=== PATIENT | female | born 1965 | race Caucasian/White ===

== ENCOUNTER 2024-11-08 20:24 | Outpatient (REF) | payer OTHER, SELFPAY ==
--- OUTSIDE RECORDS SUMMARY | 2024-06-13 11:15 | XMS_ITS ---
Author Organization [facility] vices Address [address] [place] [phone] Care Team Providers Care Asphalt Tile Floor Layer Name Role Phone Amy Nails Unavailable [phone] REASON FOR VISIT Recall (A) 58 Social History Sex Assigned At : Social History Observation Description Sex Assigned At Female Encounters Encounter Location Date Provider Diagnosis [facility] [address] [place] [id number] 06/13/2024 Amy Nails Plan Of Treatment Next Appt Details Provider Name:Amy oYngharper , 12/21/2024 12:45:00 PM, [address] [place] [address], [id number], Progress Notes * Ольга GARCIA MDOB: 7 (58 yo F)Acc No.[id number]:06/13/2024 Patient: Luisa MOYER Ольга Figueroa Provider: Coco Nails DMD :1965 A ge:58 Y S ex:Female Date:06/13/2024 Address:[address] [place], [place] [id number] Subjective: * Chief Complaints: * 1 . Recall (A) 58. * Medical History: Objective: * Vitals: Assessment: Plan: * Treatment: * Billing Information: * Visit Code: * Procedure Codes: * Electronic signature of Beatriz Nails DMD on 11/08/2024 at 08:31 PM EDT Sign off status: Pending * Provider: Coco Nails DMD Date: 0 06/13/2024 Generated for Elianai madie/Faxing/eTransmitting on: 0 11/08/2024 08:31 PM EDT
--- OUTSIDE RECORDS SUMMARY | 2024-11-07 10:15 | XMS_ITS | Encounter Summary ---
Author Organization [facility] Address [address] [place] [address] Care Team Providers Care Grounds Maintenance Worker Name Role Phone Oscar Escudero MD Primary Care Provider [phone] Bhargav Liriano NP Unavailable [phone] Judie Reynolds LPN Unavailable [phone] Reason for Referral * Imaging (Routine) - Pending Review Specialty Diagnoses / Procedures Referred By Debra stahl Referred To Contact Radiology Diagnoses Neck swelling Cervical lymphadenopathy Procedures CT soft tissue neck w IV contrast Danielle Kasper NP [address] [place] [address] Phone: tel: fax: CLAUDIA JORDAN TOMÁS [address] [place] [address] Referral ID Status Reason Start Date Expiration Date V isits Requested Visits Authorized [id number] Pending Review 11/07/2024 05/06/2025 1 1 Reason for Visit * Reason Comments 6 month follow up of chronic conditions Encounter Details Date Type Department Care Team (Latest Contact Info) Description 11/07/2024 10:15 AM EDT Office Visit [facility] [address] [place] [address] Oscar Escudero MD [address] [place] [address] Annual physical exam (Primary Dx); Mixed hyperlipidemia ; PAF (paroxysmal atrial fibrillation) (HCC); Generalized anxiety disorder ; Peripheral polyneuropathy; RLS (restless legs syndrome); Posttraumatic stress disorder ; Vitamin B12 deficiency; Vitamin D deficiency; Chronic bilateral low back pain without sciatica; Coccyx pain; Fall, initial encounter; Neck swelling; Cervical lymphadenopathy Social History Tobacco Use Types Packs/Day Years Used Date Smoking Tobacco: Every Day Cigarettes 1 47.5 Started: 1976 Smokeless Tobacco: Never Comments:11-20 cigs/day Alcohol Use Standard Drinks/Week Comments Never 0 (1 standard drink = 0.6 oz pure alcohol) caffeine- 1 to 2 cups of coffee per day AUDIT-C Answer Date Recorded Q1: How often do you have a drink containing alcohol? Never 10/06/2022 Q2: How many drinks containi ng alcohol do you have on a typical day when you are drinking? Patient does not drink Q3: How often do you have si x or more drinks on one occasion? Never 10/06/2022 PHQ-2 Answer Date Recorded Patient Health Questionnaire-2 Score 0 11/07/2024 Comments Unknown Sex and Gender Information Value Date Recorded Sex Assigned at Not on file Legal Sex Female 7:25 PM EDT Gender Identity Not on file Sexual Orientation Not on file Occupation Industry Job Start Date Job End Date Unemployed Not on file Not on file Not on file documented as of this encounter Last Filed Vital Signs Vital Sign Reading Time Taken Comments Blood Pressure 130/74 11/07/2024 10:31 AM EDT Pulse 71 11/07/2024 10:31 AM EDT Temperature - - Respiratory Rate - - Oxygen Saturation 98% 11/07/2024 10:31 AM EDT Inhaled Oxygen Concentration - - Weight 88 kg (194 lb) 11/07/2024 10:31 AM EDT Height 165.1 cm (5' 5 ) 11/07/2024 10:31 AM EDT Body Mass Index 32.28 11/07/2024 10:31 AM EDT documented in this encounter Functional Status * Over the past 2 weeks, how often have you been bothered by any of the following problems? Question Answer Date of Assessment Author Little interest or pleasure in doing things Not at all 11/07/2024 10:34 AM EDT Yazmin Escudero M A Feeling down, depressed, or hopeless Not at all 11/07/2024 10:34 AM Yazmin Velasquez M A Patient Health Questionnaire -2 Score 0 11/07/2024 10:34 AM Yazmin Velasquez M A documented as of this encounter Progress Notes * Oscar Escudero MD - 11/07/2024 10:15 AM EDT Images from the original note were not included. Ольга Garcia is a 58 y.o. female presents with chief complaint of 6 month follow up of chronic conditions HPI: History of Present Illness The patient is a 58-year-old female here today for a routine visit. Persistent Throat Soreness She has been experiencing persistent soreness in her throat, which she describes as a lump. Despitetwo courses of antibiotics, the issue persists. She has not undergone an ultrasound for this issue.She has sought emergency care due to swelling, but the problem has not fully resolved. She is unsure if this is related to her dry mouth condition. - Onset: Persistent. - Location: Throat. - Character: Soreness described as a lump. - Alleviating/Aggravating Factors: Two courses of antibiotics, emergency care. - Severity: Persistent despite treatment. Severe Dry Mouth She reports no chest pain or breathing difficulties but does experience severe dry mouth. She was previously diagnosed with thrush at an urgent care center, but her dentist disagreed with this diagnosis. She occasionally uses an inhaler at night when her sinuses are particularly bothersome, which she believes is due to allergies. She does not always rinse her mouth after using the inhaler. She has been using lozenges for relief and has attempted to use mouthwash as recommended by her dentist. - Onset: Persistent. - Location: Mouth. - Character: Severe dry mouth. - Alleviating/Aggravating Factors: Lozenges, mouthwash, inhaler use. - Severity: Severe. Leg Discomfort and Pain She has discontinued Requip due to leg discomfort, which she attributes to the medication. She continues to experience leg pain, although it is less severe than before. She also takes pregabalin for neuropathy. - Onset: Persistent. - Location: Legs. - Character: Discomfort and pain. - Alleviating/Aggravating Factors: Discontinued Requip, takes pregabalin. - Severity: Less severe than before. Lower Back Pain She has been experiencing lower back pain, which she describes as tailbone discomfort. She has had a fall tripping on a broom. She has not had any x-rays or physical therapy for her back in a long time. - Onset: Persistent. - Location: Lower back, tailbone. - Character: Discomfort. - Severity: Persistent. She underwent a colonoscopy in 10/2023 at [facility], which revealed no polyps. She is currently on rosuvastatin for cholesterol management. I have reviewed and reconciled the history and medication list with the patient today. 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, none for years Thyroid nodule SURGICAL HISTORY: Past Surgical History: Procedure Laterality Date SECTION, LOW TRANSVERSE COLONOSCOPY 12/03/2014 CT ANGIOGRAM HEART CORONARY 05/02/2024 CT ANGIOGRAM TAVR 05/02/2024 DILATION AND CURETTAGE LAPAROSCOPY DIAGNOSTIC / BIOPSY / ASPIRATION / LYSIS 11/2011 PELVIC LAPAROSCOPY 10/2016 DC LIGATE FALLOPIAN TUBE Bilateral 1985 TOTAL ABDOMINAL HYSTERECTOMY 12/18/2016 TUBAL LIGATION 1984 SOCIAL HISTORY: Social History Tobacco Use Smoking status: Every Day Current packs/day: 1.00 Average packs/day: 1 pack/day for 47.5 years (47.5 ttl pk-yrs) Types: Cigarettes Start date: 1976 Smokeless tobacco: Never Tobacco comments: 11-20 cigs/day Vaping Use Vaping status: Never Used Substance Use Topics Alcohol use: Never Comment: caffeine- 1 to 2 cups of coffee per day Drug use: Never Depression: Not at risk (11/07/2024) PHQ-2 PHQ-2 Score: 0 FAMILY HISTORY: Family History Problem Relation Name Age of Onset Hypertension Mother Naveed Garcia Heart disease Mother Naveed Garcia Stroke Mother Naveed Garcia Mental illness Mother Naveed Garcia Cancer Mother Naveed Garcia Diabetes Mother Naveed Garcia Depression Mother Naveed Jose Learning disabilities Mother Naveed Jose Miscarriages / Stillbirths Mother Naveedenrike Garcia Other (complications from staph infection) Mother Naveed Garcia Skin cancer Father Hesham Garcai Vision loss Father Hesham Garcia Arthritis Sister Yanira Garcia Clotting disorder Brother Jose Manuel Garcia Asthma Brother Jose Manuel Garcia Cancer Brother Jose Manuel Garcia Pancreatic cancer Brother No Known Problems Daughter No Known Problems Son Parkinsonism Paternal Grandmother MEDICATIONS: Current Outpatient Medications Medication Instructions acetaminophen (TYLENOL) 500 mg, Every 6 hours PRN albuterol HFA 90 mcg/act inhaler INHALE 1 TO 2 PUFFS BY MOUTH AND INTO THE LUNGS EVERY 4 HOURS IF NEEDED albuterol 2.5 mg, Nebulization, Every 4 hours PRN ALPRAZolam (XANAX) 0.5 mg, Oral, 2 times daily PRN Ascorbic Acid (vitamin C) 1000 MG tablet 1 tablet, Every 24 hours aspirin 325 mg, Oral, Daily cholecalciferol (VITAMIN D3) 25 mcg, Oral, Daily Cyanocobalamin 1000 MCG capsule 1 tablet, Every 24 hours DULoxetine (CYMBALTA) 30 mg, Oral, Daily ipratropium (ATROVENT) 0.5 mg, 4 times daily lidocaine (Lidoderm) 5 % patch 1 patch, Daily PRN metoprolol tartrate (Lopressor) 50 MG tablet 1 tablet, Every 12 hours omeprazole (PriLOSEC) [address] capsule TAKE 1 CAPSULE(20 MG) BY MOUTH DAILY. DO NOT CRUSH OR CHEW potassium chloride CR (Klor-Con) 10 MEQ ER tablet 10 mEq, Every morning pregabalin (Lyrica) 25 MG capsule Take 1 capsule (25 mg) by mouth Daily AND 2 capsules (50 mg) at bedtime. rosuvastatin (CRESTOR) 10 mg, Oral, Daily ALLERGIES: Allergies Allergen Reactions Codeine Anaphylaxis and Unknown Hydrocodone-Acetaminophen Unknown Hydromorphone Hallucinations Loratadine Other Reaction(s): Intolerance Other reaction(s): Intolerance Morphine And Codeine Rash Other Reaction(s): GI Upset Phenobarbital Other Wound Dressing Adhesive Unknown PHYSICAL EXAM: Visit Vitals BP 130/74 Pulse 71 Ht 5' 5 Wt 194 lb SpO2 98% BMI 32.28 kg/m?? Smoking Status Every Day BSA 2.01 m?? BP Readings from Last 3 Encounters: 11/07/24 130/74 07/03/24 108/64 05/09/24 130/72 Wt Readings from Last 3 Encounters: 11/07/24 194 lb 07/03/24 194 lb 1.9 oz 05/09/24 189 lb Physical Exam HENT: Right Ear: Tympanic membrane and external ear normal. Left Ear: Tympanic membrane and external ear normal. Mouth/Throat: Mouth: Mucous membranes are moist. Neck: Thyroid: No thyroid mass or thyromegaly. Vascular: No carotid bruit. Comments: Hx lymphadenopathy Cardiovascular: Rate and Rhythm: Normal rate and regular rhythm. Heart sounds: No murmur heard. No friction rub. No gallop. Pulmonary: Effort: Pulmonary effort is normal. Breath sounds: Normal breath sounds. Abdominal: General: Bowel sounds are normal. Palpations: Abdomen is soft. Tenderness: There is no abdominal tenderness. Musculoskeletal: Right lower leg: No edema. Left lower leg: No edema. Lymphadenopathy: Cervical: No cervical adenopathy. Right cervical: No superficial, deep or posterior cervical adenopathy. Left cervical: No superficial, deep or posterior cervical adenopathy. Skin: General: Skin is warm and dry. Neurological: Mental Status: She is alert and oriented to person, place, and time. Psychiatric: Thought Content: Thought content normal. Results Labs - Total cholesterol: 04/2024, 207 mg/dL - Triglycerides: 04/2024, 175 mg/dL - LDL: 04/2024, 137 mg/dL - D-dimer: 12/2023, Normal - Magnesium: 12/2023, Normal - Troponin: 12/2023, Normal Imaging - Mammogram: Showed a cyst, no signs of cancer - Ultrasound: Showed a cyst, no signs of cancer Diagnostic Testing - Colonoscopy: 10/29/2023, Normal, no polyps ASSESSMENT AND PLAN: Assessment & Plan 1. Annual physical exam Doing well. Discussed eating healthy and exercising regularly. No major issues. Exam is unremarkable. Health maintenance is up-to-date. Call if any health issues arise. Otherwise, reassess again in one year. 2. Mixed hyperlipidemia (Primary) Hyperlipidemia: Chronic. - Total cholesterol: 207 mg/dL, Triglycerides: 175 mg/dL, LDL: 137 mg/dL. - Currently on rosuvastatin started in May. - Lab order for [facility] provided for next visit. 3. PAF (paroxysmal atrial fibrillation) (HCC) Heart rate is controlled. She is in NSR today. The patient reports no symptoms. Call if any problems. - Comprehensive metabolic panel; Future - Comprehensive metabolic panel 4. Generalized anxiety disorder Doing well. Continue current regimen. 5. Peripheral polyneuropathy Stable. Continue to monitor. Continue Pregabalin as directed. 6. RLS (restless legs syndrome) Restless legs syndrome and neuropathy: Chronic. - Discontinued Requip due to worsening symptoms. - Currently taking pregabalin for neuropathy. - Reports improvement in symptoms since stopping Requip. - Continued monitoring of symptoms and medication effectiveness. 7. Posttraumatic stress disorder Stable. Continue to monitor. 8. Vitamin B12 deficiency Taking supplement. Continue to monitor. 9. Vitamin D deficiency Taking supplement. Continue to monitor. 10. Chronic bilateral low back pain without sciatica Low back pain: Chronic. Exacerbated currently. - X-ray of the coccyx and lower back ordered due to a recent history of a fall. - Provided stretching exercises to be done in bed. - Referral to physical therapy if stretching exercises do not help. - XR lumbar spine 2 or 3 views 11. Coccyx pain As above. - XR sacrum coccyx 2+ views 12. Fall, initial encounter As above. - XR lumbar spine 2 or 3 views - XR sacrum coccyx 2+ views 13. Neck swelling - Persistent sore throat and swelling in the neck area. - CT scan of the soft tissue in the neck with contrast ordered to evaluate. - Continued monitoring of symptoms and evaluation of imaging results. - Referral for further evaluation if necessary. - CT soft tissue neck w IV contrast; Future 14. Cervical lymphadenopathy Not present today. - CT soft tissue neck w IV contrast; Future Breast cyst: Stable. - Mammogram and ultrasound results suggest a cystic formation, which does not raise concerns for malignancy. - Reassured that the findings do not indicate cancer. - Follow-up imaging study recommended in 6 months. - Consult a general surgeon if uncomfortable with this plan. Xerostomia. - Advised to carry water and consider using [id number] mouth rinses for dry mouth. - Advised to rinse mouth after using inhalers and avoid using the inhaler before bedtime if rinsingis not possible. - Continued monitoring of symptoms and effectiveness of suggested remedies. Health maintenance. - Colonoscopy in 10/2023 was normal. - Next colonoscopy recommended in 10 years from the last one. - Continued monitoring of overall health and routine screenings. Follow-up - Follow-up imaging study for breast cyst in 6 months. Patient was seen and examined with Danielle Kasper CNP. History was confirmed and verified. Little elements of the exam were also completed. Assessment and plan were reviewed and addended as needed. Agree with documentation above. documented in this encounter Plan of Treatment Upcoming Encounters Date Type Department Care Team (Late st Contact Info) Description 05/10/2025 9:45 AM EST Office Visit [facility] [address] [place] [address] 11/12/2025 8:30 AM EDT Office Visit [facility] [address] [place] [id number] Tony Montoya DO [address] [place] [address] Pending Results Name Type Priority Associated Diagnoses Date /Time XR lumbar spine 2 or 3 views Imaging Routine Chronic bilateral low back pain without sciatica Fall, initial encounter 11/08/2024 3:06 PM EDT XR sacrum coccyx 2+ views Imaging Routine Coccyx pain Fall, initial encounter 11/08/2024 3:06 PM EDT Scheduled Orders Name Type Priority Associated Diagnoses Orde r Schedule Comprehensive metabolic panel Lab Routine PAF (paroxysmal atrial fibrillation) (HCC) Expected: 05/10/2025, Expires: 11/07/2025 CT soft tissue neck w IV contrast Imaging Routine Neck swelling Cervical lymphadenopathy Expected: 11/07/2024 (Approximate), Expires: 02/07/2025 documented as of this encounter Goals Goal Patient Goal Type Associated Problems Recent Progress Patient-Stated? Author Smoking cessation General Zina Odonnell LPN documented as of this encounter Visit Diagnoses Diagnosis Annual physical exam- Primary Routine general medical examination at a health care facility Mixed hyperlipidemia Mixed hyperlipidemia PAF (paroxysmal atrial fibrillation) (HCC) Atrial fibrillation Generalized anxiety disorder Generalized anxiety disorder Peripheral polyneuropathy RLS (restless legs syndrome) Restless legs syndrome (RLS) Posttraumatic stress disorder Posttraumatic stress disorder Vitamin B12 deficiency Other B-complex deficiencies Vitamin D deficiency Chronic bilateral low back pain without sciatica Coccyx pain Other disorder of coccyx Fall, initial encounter Neck swelling Swelling, mass, or lump in head and neck Cervical lymphadenopathy Enlargement of lymph nodes documented in this encounter Care Teams Grounds Maintenance Worker Relationship Specialty Start Date End Date Oscar Escudero MD [address] [place] [address] PCP - General Internal Medicine 10/06/22 Bhargav Liriano NP [address] [place] [address] PCP - [facility] 08/01/22 Judie Reynolds LPN [address] [place] [address] Licensed Practical Nurse Family Medicine 01/13/23 documented as of this encounter
--- OUTSIDE RECORDS SUMMARY | 2024-11-08 09:30 | XMS_ITS | Encounter Summary ---
Author Organization [facility] Address [address] [place] [address] Care Team Providers Care Carpenter Supervisor Wooden Ship Name Role Phone Oscar Escudero MD Primary Care Provider [phone] Bhargav Liriano OIL AND GAS SUPERINTENDENT Unavailable [phone] Judie Reynolds LPN Unavailable [phone] Encounter Details Date Type Department Care Team (Late st Contact Info) Description 11/08/2024 9:30 AM EDT Ancillary Procedure [facility] [address] [place] [address] Arrived Social History Tobacco Use Types Packs/Day Years [...] Patient Health Questionnaire-2 Score 0 11/07/2024 Comments No Sex and Gender Information Value Date Recorded Sex Assigned at Not on file Legal Sex Female 7:25 PM EDT Gender Identity Not on file Sexual Orientation Not on file Occupation Industry Job Start Date Job End Date Unemployed Not on file Not on file Not on file documented as of this encounter Plan of Treatment Upcoming Encounters Date Type Department Care Team (Late st Contact Info) Description 05/10/2025 9:45 AM EST Office Visit [facility] [address] [place] [phone] 11/12/2025 8:30 AM EDT Office Visit [facility] [address] [facility] [place] [phone] Tony Montoya, DO [address] [facility] [place] [address] Pending Results Name Type Priority Associated Diagnoses Date /Time XR lumbar spine 2 or 3 views Imaging Routine Chronic bilateral low back pain without sciatica Fall, initial encounter 11/08/2024 3:06 PM EDT XR sacrum coccyx 2+ views Imaging Routine Coccyx pain Fall, initial encounter 11/08/2024 3:06 PM EDT documented as of this encounter Goals Goal Patient Goal Type Associated Problems Recent Progress Patient-Stated? Author Smoking cessation General No Zina Lawler LPN documented as of this encounter Visit Diagnoses Not on filedocumented in this encounter Care Teams Carpenter Supervisor Wooden Ship Relationship Specialty Start Date End Date Oscar Escudero MD [address] [place] [phone] PCP - General Internal Medicine 10/06/22 Bhargav Liriano, COLETTE [address] [place] [address] PCP - [facility] 08/01/22 Judie Reynolds LPN [address] [place], [place] [id number] Licensed Practical Nurse Family Medicine 01/13/23 documented as of this encounter
--- OUTSIDE RECORDS SUMMARY | 2024-11-08 13:00 | XMS_ITS | Encounter Summary ---
Author Organization [facility] Address [address] [facility] [place] [address] Care Team Providers Care Certified Genetic Counselor Name Role Phone Oscar Escudero MD Primary Care Provider [phone] Bhargav Liriano ANALYSIS CONSULTANT Unavailable [phone] Judie Reynolds LPN Unavailable [phone] Reason for Visit * Reason Comments Well Women Visit Encounter Details Date Type Department Care Team (Late Contact Info) Description 11/08/2024 1:00 PM EDT Office Visit [facility] OB [address] [place] [phone] Tony Montoya, DO [address] [place], [facility]11 Well woman exam with routine gynecological exam; Postmenopausal state; Folliculitis Social History Tobacco Use Types Packs/Day Years [...] Sign Reading Time Taken Comments Blood Pressure 110/60 11/08/2024 1:13 PM EDT Pulse - - Temperature - - Respiratory Rate - - Oxygen Saturation - - Inhaled Oxygen Concentration - - Weight 88.2 kg (194 lb 6.4 oz) 11/08/2024 1:13 P M EDT Height - - Body Mass Index 32.35 11/07/2024 10:31 AM EDT documented in this encounter Progress Notes * Andree Jason LPN - 11/08/2024 1:00 PM EDT Reason for Appointment: Patient ID: Ольга Garcia is a 58 y.o. female who presents for Well Women Visit Patient presents today for Annual Exam. MEDICATIONS Current Outpatient Medications Medication Instructions acetaminophen (TYLENOL) [...] bedtime. rosuvastatin (CRESTOR) 10 mg, Oral, Daily ALLERGIES Allergies Allergen Reactions Codeine Anaphylaxis and Unknown Hydrocodone-Acetaminophen Unknown Hydromorphone Hallucinations Loratadine Other Reaction(s): Intolerance Other reaction(s): Intolerance Morphine And Codeine Rash Other Reaction(s): GI Upset Phenobarbital Other Wound Dressing Adhesive Unknown PROBLEMS Active Ambulatory Problems Diagnosis Date Noted PAF (paroxysmal atrial fibrillation) ([facility]) 09/11/2022 Cervical spondylosis with radiculopathy 09/11/2022 Chronic fatigue syndrome 09/11/2022 Gastroesophageal reflux disease 09/11/2022 Generalized anxiety disorder 09/11/2022 H/O: hysterectomy 09/11/2022 Vitamin B12 deficiency 09/11/2022 RLS (restless legs syndrome) 09/11/2022 Peripheral neuropathy 09/11/2022 Memory loss 09/11/2022 Chronic seasonal allergic rhinitis 09/11/2022 Chronic frontal sinusitis 09/11/2022 Bilateral carpal tunnel syndrome 03/30/2017 Cervical disc displacement 01/08/2023 Chondromalacia patellae, right knee 01/08/2023 Chronic hepatitis C virus infection ([facility]) 07/11/2013 Chronic bilateral low back pain without sciatica 11/18/2017 Fibromyalgia 10/06/2017 Hearing decreased 07/04/2020 Tinnitus 07/04/2020 Tobacco use 08/20/2022 Vitamin D deficiency 08/23/2017 Posttraumatic stress disorder 01/08/2023 History of kidney stones 04/04/2023 Primary osteoarthritis involving multiple joints 04/04/2023 Seizure ([facility]) 04/22/2023 Panic attacks 04/29/2024 Mixed hyperlipidemia 05/29/2024 Resolved Ambulatory Problems Diagnosis Date Noted No Resolved Ambulatory Problems Past Medical History: Diagnosis Date Allergic rhinitis Cataract Chronic sinusitis FANNY (generalized anxiety disorder) GERD (gastroesophageal reflux disease) H/O hepatitis Hx of being hospitalized 12/2016 Hx of being hospitalized OA (osteoarthritis) PTSD (post-traumatic stress disorder) Thyroid nodule HISTORY PAST MEDICAL HISTORY SOCIAL HISTORY Past Medical History: Diagnosis Date Allergic rhinitis Cataract Cervical disc displacement Chronic sinusitis FANNY (generalized anxiety disorder) GERD (gastroesophageal reflux disease) H/O hepatitis type C (resolved with tx) Hx of being hospitalized 12/2016 post op complications Hx of being hospitalized blood transfusion (Rh issues following childbirth) OA (osteoarthritis) PTSD (post-traumatic stress disorder) RLS (restless legs syndrome) 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, none for years Thyroid nodule Social History Tobacco Use Smoking status: Every Day Current packs/day: 1.00 Average packs/day: 1 pack/day for 47.5 years (47.5 ttl pk-yrs) Types: Cigarettes Start date: 1976 Smokeless tobacco: Never Tobacco comments: 11-20 cigs/day Vaping Use Vaping status: Never Used Substance Use Topics Alcohol use: Never Comment: caffeine- 1 to 2 cups of coffee per day Drug use: Never FAMILY HISTORY Family History Problem Relation Name Age of Onset Hypertension Mother Naveed Garcia Heart disease Mother Naveed Garcia Stroke Mother Naveed Garcia Mental illness Mother Naveed Garcia Cancer Mother Naveed Garcia Diabetes Mother Naveed Garcia Depression Mother Naveed Garcia Learning disabilities Mother Naveed Garcia Miscarriages / Stillbirths Mother Naveed Garcia Other (complications from staph infection) Mother Naveed Garcia Skin cancer Father Hesham Garcia Vision loss Father Hesham Garcia Arthritis Sister Yanira Garcia Clotting disorder Brother Jose Manuel Garcia Asthma Brother Jose Manuel Garcia Cancer Brother Jose Manuel Garcia Pancreatic cancer Brother No Known Problems Daughter No Known Problems Son Parkinsonism Paternal Grandmother SURGICAL HISTORY Past Surgical History: Procedure Laterality Date SECTION, LOW TRANSVERSE COLONOSCOPY 12/03/2014 CT ANGIOGRAM HEART CORONARY 05/02/2024 CT ANGIOGRAM TAVR 05/02/2024 DILATION AND CURETTAGE LAPAROSCOPY DIAGNOSTIC / BIOPSY / ASPIRATION / LYSIS 11/2011 PELVIC LAPAROSCOPY 10/2016 HI LIGATE FALLOPIAN TUBE Bilateral 1985 TOTAL ABDOMINAL HYSTERECTOMY 12/18/2016 TUBAL LIGATION 1984 REVIEW OF SYSTEMS Review of Systems: Review of Systems Constitutional: Negative. HENT: Negative. Eyes: Negative. Respiratory: Negative. Cardiovascular: Negative. Gastrointestinal: Negative. Genitourinary: Negative. Musculoskeletal: Negative. Skin: Negative. Neurological: Negative. All other systems reviewed and are negative. Hematological: Negative. Endocrine: Negative. Allergic/Immunologic: Negative. OBJECTIVE Objective: Physical Exam Constitutional: Appearance: Normal appearance. She is well-developed. Genitourinary: Vulva normal. Vaginal cuff intact. Cervix is absent. Uterus is absent. Cardiovascular: Rate and Rhythm: Normal rate and regular rhythm. Abdominal: General: Bowel sounds are normal. There is no distension. Palpations: Abdomen is soft. Tenderness: There is no abdominal tenderness. There is no guarding or rebound. Musculoskeletal: General: No swelling. Normal range of motion. Right lower leg: No edema. Left lower leg: No edema. Neurological: Mental Status: She is alert and oriented to person, place, and time. Skin: General: Skin is warm and dry. Psychiatric: Mood and Affect: Mood normal. Behavior: Behavior normal. Vitals and nursing note reviewed. Exam conducted with a wood drill operator present. Vitals: Estimated body mass index is 32.35 kg/m?? as calculated from the following: Height as of 11/07/24: 5' 5 . Weight as of this encounter: 194 lb 6.4 oz. BP: 110/60 No LMP recorded. Patient has had a hysterectomy. ASSESSMENT & PLAN ICD-10-CM 1. Well woman exam with routine gynecological exam Z01.419 THIN PREP TIS PAP AND HR HPV DNA 2. Postmenopausal state Z78.0 DEXA bone density Orders Placed This Encounter Procedures DEXA bone density Annual Wellness Exam (Post Hysterectomy): Patient presents today for routine annual exam. Patient states she has complaints of boil or ingrown hair on right buttocks, rx for keflex faxed to pharmacy. Cultured area on right lower buttocks. Patients vitals were reviewed and within normal limits. Growth and development is noted to be appropriate for age. Menstrual history is noted to be obsolete due to patients history of hysterectomy. No mental health concerns was expressed. Pap Smear: Speculum was inserted into the vagina and pap was obtained without difficulty. HPV testing was performed per guidelines. Patient was advised that pap results could take anywhere from 7 to 10 days to receive and our office will reach out to the patient with those once we have them. Patient can also view results via [employer] [employer]. I reinforced importance of condom use for STI prevention. Patient declined cultures to be performed with today's visit. Breast Exam: Upon examination, clinical breast exam was noted to be normal. Patient was counseled on breast self-awareness, including the importance of knowing what is normal for her own breasts and promptly reporting any changes such as new lumps, skin dimpling, nipple discharge, or pain. Screening mammogram recommended annually beginning at age 40 or earlier if risk factors are present. Discussed signs and symptoms of breast cancer and when to seek medical attention. Answered all patient questions. Follow Up: Patient is to return to our office in one year for annual exam unless needed otherwise. Documented by Andree Jason LPN on behalf of: Tony Montoya DO documented in this encounter Plan of Treatment Upcoming Encounters Date Type Department Care Team (Late st Contact Info) Description 05/10/2025 9:45 AM EST Office Visit [facility] [address] [place] [phone] 11/12/2025 8:30 AM EDT Office Visit [facility] [address] [facility] [address] [phone] Tony Montoya DO [address] [place] [address] Scheduled Orders Name Type Priority Associated Diagnoses Orde r Schedule DEXA bone density Imaging Routine Postmenopausal state Expected: 11/08/2024 (Approximate), Expires: 11/08/2025 THIN PREP TIS PAP AND HR HPV DNA Pathology and Cytology Routine Well woman exam with routine gynecological exam Ordered: 11/08/2024 Anaerobic culture Microbiology Routine Folliculitis Ordered: 11/08/2024 Aerobic culture Microbiology Routine Folliculitis Ordered: 11/08/2024 documented as of this encounter Goals Goal Patient Goal Type Associated Problems Recent Progress Patient-Stated? Author Smoking cessation General No Zina Lawler LPN documented as of this encounter Visit Diagnoses Diagnosis Well woman exam with routine gynecological exam Routine gynecological examination Postmenopausal state Asymptomatic postmenopausal status (age-related) (natural) Folliculitis Other specified disease of hair and hair follicles documented in this encounter Care Teams Certified Genetic Counselor Relationship Specialty Start Date End Date Oscar Escudero MD [address] [place] [address] PCP - General Internal Medicine 10/06/22 Bhargav Liriano NP [address] [place] [address] PCP - [facility] 08/01/22 Judie Reynolds, WENDY [address] [place] [id number] Licensed Practical Nurse Family Medicine 01/13/23 documented as of this encounter
--- OUTSIDE RECORDS SUMMARY | 2024-11-08 20:31 | XMS_ITS | Encounter Summary ---
Author Organization [facility] Address [address] [place] [address] Care Team Providers Care Crusher Machine Operator Name Role Phone Oscar Escudero MD Primary Care Provider [phone] Bhargav Liriano DRIFTMAN Unavailable [phone] Judie Reynolds LPN Unavailable [phone] Reason for Visit * Reason Comments Med Refill Encounter Details Date Type Department Care Team (Late st Contact Info) Description 10/31/2022 Refill [facility] [address] [facility] [address] [place] [address] Oscar Escudero MD [address] [facility] [address] [place] [address] Generalized anxiety disorder Social History Tobacco Use Types Packs/Day Years Used Date Smoking Tobacco: Every Day Cigarettes 1 47.5 Started: [birth year]/03/1976 Smokeless Tobacco: Never Alcohol Use Standard Drinks/Week Comments Never 0 (1 standard drink = 0.6 oz pur e alcohol) AUDIT-C Answer Date Recorded Q1: How often do you have a drink containing alcohol? Never 10/06/2022 Q2: How many drinks containi ng alcohol do you have on a typical day when you are drinking? Patient does not drink Q3: How often do you have si x or more drinks on one occasion? Never 10/06/2022 Comments Unknown Sex and Gender Information Value Date Recorded Sex Assigned at Not on file Legal Sex Female 7:25 PM EDT Gender Identity Not on file Sexual Orientation Not on file Occupation Industry Job Start Date Job End Date Unemployed Not on file Not on file Not on file documented as of this encounter Miscellaneous Notes * Telephone Encounter - Praveena Vargas LPN - 11/04/2022 7:50 AM EDT Approving, but needs appt for additional refills. documented in this encounter Plan of Treatment Upcoming Encounters Date Type Department Care Team (Late st Contact Info) Description 05/10/2025 9:45 AM EST Office Visit [facility] [address] [place] [address] 11/12/2025 8:30 AM EDT Office Visit [facility] [address] [place] [phone] Tony Montoya DO [address] [place] [address] documented as of this encounter Goals Goal Patient Goal Type Associated Problems Recent Progress Patient-Stated? Author Smoking cessation General Zina Odonnell LPN documented as of this encounter Visit Diagnoses Diagnosis Generalized anxiety disorder Generalized anxiety disorder documented in this encounter Care Teams Crusher Machine Operator Relationship Specialty Start Date End Date Oscar Escudero MD [address] [place] [address] PCP - General Internal Medicine 10/06/22 Bhargav Liriano NP [address] [place] [address] PCP - [facility] 08/01/22 Judie Reynolds LPN [address] [place] [address] Licensed Practical Nurse Family Medicine 01/13/23 documented as of this encounter
--- OUTSIDE RECORDS SUMMARY | 2024-11-08 20:31 | XMS_ITS | Encounter Summary ---
Author Organization [facility] Address [address] [place] [address] Care Team Providers Care Care Team Coordinator Scheduler Name Role Phone Oscar Escudero MD Primary Care Provider [phone] Bhargav Liriano ARTIFICIAL PLASTIC EYE MAKER Unavailable [phone] Judie Reynolds LPN Unavailable [phone] Encounter Details Date Type Department Care Team (Late st Contact Info) Description 07/05/2023 External Result Encounter [facility] [address] [facility] [address] [place] [phone] Oscar Escudero MD [address] [facility] [address] [place] [address] Social History Tobacco Use Types Packs/Day Years [...] IM [address] [place] [address] 11/12/2025 8:30 AM EDT Office Visit [facility] [address] [facility] [address] Tony Montoya, DO [address] [facility] [place] [address] documented as of this encounter Goals Goal Patient Goal Type Associated Problems Recent Progress Patient-Stated? Author Smoking cessation General Zina Odonnell LPN documented as of this encounter Procedures Procedure Name Priority Date/Time Associated Diagnosis Comments XR CHEST 2 VIEWS 07/05/2023 10:4 8 AM EST documented in this encounter Results * XR chest 2 views (07/05/2023 10:48 AM EST) Anatomical Region Laterality Modality Chest Radiographic Viridiana ging 07/05/2023 10:4 8 AM EST Narrative 07/05/2023 10:46 AM EST THIS EXAM WAS PERFORMED AT [facility] XR CHEST 2 VWS HISTORY: Bacterial pneumonia COMPARISON: 04/10/2023 TECHNIQUE: PA and lateral upright films obtained. FINDINGS: Trachea is midline. The cardiomediastinal silhouette is within normal limits. No focal consolidation. No pneumothorax or pleural effusion. IMPRESSION: No radiographic evidence of acute cardiopulmonary abnormality. Approved by Resident Huong Ramon DO on 07/05/2023 9:46 AM IKaran MD have personally reviewed the image(s) and agree with and/or edited the report Finalized by Karan Sanders MD on 07/05/2023 10:46 AM Procedure Note Radiology, Radiologist, - 07/05/2023 THIS EXAM WAS PERFORMED AT [facility] XR CHEST 2 VWS HISTORY: Bacterial pneumonia COMPARISON: 04/10/2023 TECHNIQUE: PA and lateral upright films obtained. FINDINGS: Trachea is midline. The cardiomediastinal silhouette is within normallimits. No focal consolidation. No pneumothorax or pleural effusion. IMPRESSION: No radiographic evidence of acute cardiopulmonary abnormality. Approved by Resident Huong Ramon DO on 07/05/2023 9:46 AM Karan Grijalva MD have personally reviewed the image(s) and agree withand/or edited the report Finalized by Karan Sanders MD on 07/05/2023 10:46 AM Oscar Escudero MD IMG XR PROCEDURES Final Result documented in this encounter Visit Diagnoses Not on filedocumented in this encounter Care Teams Care Team Coordinator Scheduler Relationship Specialty Start Date End Date Oscar Escudero MD [address] [facility] [place] [address] PCP - General Internal Medicine 10/06/22 Bhargav Liriano NP [address] [place] [address] PCP - [facility] 08/01/22 Judie Reynolds LPN [address] [place] [address] Licensed Practical Nurse Family Medicine 01/13/23 documented as of this encounter
--- OUTSIDE RECORDS SUMMARY | 2024-11-08 20:31 | XMS_ITS | Encounter Summary ---
Author Organization [facility] Address [address] [place] [address] Care Team Providers Care Sky Line Yarder Name Role Phone Oscar Escudero MD Primary Care Provider Bhargav Liriano HEALTH INSURANCE AGENT Unavailable [phone] Judie Reynolds LPN Unavailable [phone] Encounter Details Date Type Department Care Team (Late Contact Info) Description 09/08/2022 Abstract [facility] [address] [facility] [address] [place] [address] Oscar Escudero MD [address] [facility] [address] [place] [address] Social History Tobacco Use Types Packs/Day Years Used Date Smoking Tobacco: Every Day Cigarettes 1 47.5 Started: [birth year]/03/1976 Tobacco Cessation:Ready to Q uit: Yes; Counseling Given: Not Answered Alcohol Use Standard Drinks/Week Comments Never 0 (1 standard drink = 0.6 oz pure alcohol) caffeine: 2 cups per day coffee Comments Unknown Sex and Gender Information Value [...] Encounters Date Type Department Care Team (Late Contact Info) Description 05/10/2025 9:45 AM EST Office Visit [facility] [address] [facility] [address] [place] [phone] 11/12/2025 8:30 AM EDT Office Visit [facility] [address] [facility] [address] Tony Montoya, [address] [facility] [place] [address] documented as of this encounter Visit Diagnoses Not on filedocumented in this encounter Care Teams Sky Line Yarder Relationship Specialty Start Date End Date sOcar Escudero MD [address] [place] [address] PCP - General Internal Medicine 10/06/22 Bhargav Liriano NP [address] [facility] [address] [place] [address] PCP - [facility] 08/01/22 Judie Reynolds LPN [address] [facility] [address] [place] [address] Licensed Practical Nurse Family Medicine 01/13/23 documented as of this encounter
--- OUTSIDE RECORDS SUMMARY | 2024-11-08 20:31 | XMS_ITS | Encounter Summary ---
Author Organization [facility] Address [id number] [address] [place] [address] Care Team Providers Care Salvation Army Officer Name Role Phone Oscar Escudero MD Primary Care Provider [phone] Reason for Visit * Reason Comments Med Refill Encounter Details Date Type Department Care Team (Late st Contact Info) Description 06/13/2024 Refill [facility] [address] [place] [phone] Soumya Godoy, ADMITTING COORDINATOR-GREENSKEEPER LABORER [address] [place] [address] Med Refill Social History Tobacco Use Types Packs/Day Years Used Date Smoking Tobacco: Every Day Cigarettes 0.5 30 Smokeless Tobacco: Never Alcohol Use Standard Drinks/Week Comments Not Currently 0 (1 standard drink = 0.6 oz pur e alcohol) Social Connection and Isolat ion Panel [NHANES] Answer Date Recorded In a typical week, how many times do you talk on the phone with family, friends, or neighbors? More than three times a week 01/12/2020 How often do you get togethe r with friends or relatives? Twice a week 01/12/2020 How often do you attend chur ch or quaker services? Never 01/12/2020 Do you belong to any clubs o r organizations such as yazdanism groups, unions, fraternal or athletic groups, or school groups? Yes 01/12/2020 How often do you attend meet ings of the clubs or organizations you belong to? 1 to 4 times per year 01/12/2020 Are you , , di vorced, , never , or living with a partner? Living with partner 01/12/2020 Overall Financial Resource Strain (CARDIA) Answe r Date Recorded How hard is it for you to pa y for the very basics like food, housing, medical care, and heating? Not hard at all 01/12/2020 PHQ-2 Answer Date Recorded Total Score 2 01/12/2020 [facility] - Occupational Stress Questionnaire Answer Date Recorded Do you feel stress - tense, restless, nervous, or anxious, or unable to sleep at night because your mind is troubled all the time - these days? To some extent 01/12/2020 Exercise Vital Sign Answer Date Recorde d On average, how many days pe r week do you engage in moderate to strenuous exercise (like a brisk walk)? 2 days 01/12/2020 On average, how many minutes do you engage in exercise at this level? 50 min 01/12/2020 PRAPARE - Transportation Answer Date Re corded In the past 12 months, has l ack of transportation kept you from medical appointments or from getting medications? No 01/01 In the past 12 months, has l ack of transportation kept you from meetings, work, or from getting things needed for daily living? No 01/12/2020 Housing Instability Answer Date Recorde d Are you worried or concerned that in the next two months you may not have stable housing that you own, rent or stay in as a part of a household? No 04/10/2023 Childcare Answer Date Recorded Do problems getting child ca re make it difficult for you to work or study? No 01/12/2020 Employment Answer Date Recorded Do you need help finding a l ocal career center and/or a training program? No 01/12/2020 Hunger Screening Answer Date Recorded Within the past 12 months we worried whether our food would run out before we got money to buy more. Never True 05/17/2024 Within the past 12 months th e food we bought just didn't last and we didn't have money to get more. Never True 05/17/2024 Purpose - Life Answer Date Recorded Purpose and direction in life Unknown Comments No Sex and Gender Information Value Date Recorded Sex Assigned at Female 03/09/2024 2:18 PM EST Legal Sex Female 2:56 PM EDT Gender Identity Female 03/09/2024 2:18 PM EST Sexual Orientation Straight 03/09/2024 2: 18 PM EST documented as of this encounter Miscellaneous Notes * Telephone Encounter - Sonya Youngblood LPN - 06/13/2024 12:55 PM EST Duplicate. Rx filled 06/20/24 for 90 days. documented in this encounter Plan of Treatment Not on file documented as of this encounter Visit Diagnoses Not on filedocumented in this encounter Additional Health Concerns Assessment Noted Time PHQ-9 Depression Total Score: 2 01/12/20 20 6:00 AM EDT documented as of this encounter Care Teams Salvation Army Officer Relationship Specialty Start Date End Date Oscar Escudero MD [address] [place] [address], [place] [address] PCP - General Internal Medicine 08/21/24 documented as of this encounter
--- OUTSIDE RECORDS SUMMARY | 2024-11-08 20:31 | XMS_ITS | Encounter Summary ---
Author Organization [facility] [employer] Address [id number] [address] [place] [address] Care Team Providers Care Pc Maintenance Technician Name Role Phone Oscar Escudero MD Primary Care Provider [phone] Reason for Visit * Reason Comments Med Refill Encounter Details Date Type Department Care Team (Late st Contact Info) Description 04/26/2020 Refill [facility] Pulmonary/Sleep Medicine [address] [place] [address] Cristin Mendoza MD [address] [place] [address] Restless leg syndrome; Iron deficiency Social History Tobacco Use Types Packs/Day Years [...] often do you attend chur ch or christian services? Never 01/12/2020 Do you belong to any clubs o r organizations such as rastafari groups, unions, fraternal or athletic groups, or [...] Answer Date Recorded Total Score 2 01/12/2020 [facility] - Occupational [...] things needed for daily living? No 01/12/2020 Childcare Answer Date Recorded Do problems getting child ca re make it difficult for you to work or study? No 01/12/2020 Employment Answer Date Recorded Do you need help finding a [facility] career center and/or a training program? No 01/12/2020 Comments No Sex and Gender Information Value Date Recorded Sex Assigned at Female 03/09/2024 2:18 PM EST Legal Sex Female 2:56 PM EDT Gender Identity Female 03/09/2024 2:18 PM EST Sexual Orientation Straight 03/09/2024 2: 18 PM EST COVID-19 Exposure Response Date Recorded In the last month, have you been in contact with someone who was confirmed or suspected to have Coronavirus / COVID-19? No / Unsure 04/16/2020 12:14 PM EST documented as of this encounter Miscellaneous Notes * Telephone Encounter - Cristin Mendoza MD - 04/26/2020 9:49 AM EST Pharmacy refill for supplemental iron declined - had planned to have her repeat her iron studies after 3 months of oral supplementation in May. Repeat labs previously ordered - should be done fasted and in morning prior to compliance visit. Was setup on APAP due to issue with her COVID test forher titraiton. * Telephone Encounter - Mariah White LPN - 04/26/2020 9:49 AM EST Pt aware. She will do them today. documented in this encounter Plan of Treatment Not on file documented as of this encounter Visit Diagnoses Diagnosis Restless leg syndrome Restless legs syndrome (RLS) Iron deficiency Disorders of iron metabolism documented in this encounter Additional Health Concerns Infection Onset Date Last Indicated Resolved Time COVID-19 Rule-Out 09/27/2020 09/27/2020 09/27/2020 8:20 PM EDT COVID-19 Rule-Out 02/27/2021 02/27/2021 02/27/2021 9:29 AM EDT COVID-19 Positive 04/01/2022 04/01/2022 04/22/2022 11:12 PM EST COVID-19 Rule-Out 04/05/2023 04/05/2023 04/05/2023 11:25 AM EST COVID-19 Rule-Out 01/29/2024 01/29/2024 01/29/2024 6:50 PM EDT COVID-19 Rule-Out 03/28/2024 03/28/2024 03/28/2024 5:11 PM EST COVID-19 Rule-Out 04/24/2024 04/24/2024 04/24/2024 8:14 PM EST COVID-19 Rule-Out 05/02/2024 05/02/2024 05/02/2024 10:09 PM EST Assessment Noted Time PHQ-9 Depression Total Score: 2 01/12/20 20 6:00 AM EDT documented as of this encounter Care Teams Pc Maintenance Technician Relationship Specialty Start Date End Date Oscar Escudero MD [address] [place] [address], [address] [place] [address] PCP - General Internal Medicine 08/21/24 documented as of this encounter
--- OUTSIDE RECORDS SUMMARY | 2024-11-08 20:31 | XMS_ITS ---
Author Organization [facility] Address [address] [place] [address] Care Team Providers Care Sampling Expert Name Role Phone Oscar Escudero MD Primary Care Provider [phone] Bhargav Liriano SUPERVISOR WET ROOM Unavailable [phone] Judie Reynolds LPN Unavailable [phone] Chronic Care Management (CCM) Status:Enrolled (Active) Start date:01/13/2023 Enrollment date:01/13/2023 Enrollment reason:Identified using hospital discharge data Overview Addresses patients in need of care management services. 01/13/23, 9:28 AM - Judie Reynolds LPN- Patient gives verbal consent to be enrolled in CCM Program and understands there could be a bill for this service. Case Team Name Relationship Phone Judie Reynolds LPN(Responsible Staff) Licensed Practical Nurse [phone] Continued Care and Services Coordination
--- OUTSIDE RECORDS SUMMARY | 2024-11-08 20:32 | XMS_ITS | Encounter Summary ---
Author Organization [facility] Address [address] [place] [address] Care Team Providers Care Client Evaluator Name Role Phone Phylicia Del Castillo DUTCH Primary Care Provider [phone] Source Comments In the event this information is protected by the Federal Confidentiality of Alcohol and Drug AbusePatient Records regulations: The Federal rules restrict any use of the information to criminally investigate or prosecute any alcohol or drug abuse patient.[facility] Encounter Details Date Type Department Care Team (Late st Contact Info) Description 04/18/2019 Patient Msg Gastroenterology [address] [facility] [address] [place] [address] [place] [address] [place], [place] [address] [place] [address] results followup Social History Tobacco Use Types Packs/Day Years Used Date Smoking Tobacco: Every Day Cigarettes 1 43 Started: [birth year]/09/1981 Smokeless Tobacco: Never Alcohol Use Standard Drinks/Week Comments No 0 (1 standard drink = 0.6 oz pur e alcohol) PHQ-2 Answer Date Recorded PHQ-2 Score 5 03/18/2019 Comments No Sex and Gender Information Value Date Recorded Sex Assigned at Not on file Legal Sex Female 11:40 AM EST Gender Identity Not on file Sexual Orientation Not on file documented as of this encounter Functional Status * Are you deaf or do you have serious difficulty hearing? Answer Date of Assessment Author No 07/11/2013 9:15 AM Erika Church * Are you blind or do you have serious difficulty seeing, even when wearing glasses? Answer Date of Assessment Author Yes 07/11/2013 9:15 AM Erika Church * Do you have serious difficulty walking or climbing stairs? Answer Date of Assessment Author No 07/11/2013 9:15 AM Erika Church * Do you have difficulty dressing or bathing? Answer Date of Assessment Author No 07/11/2013 9:15 AM Erika Church * Because of a physical, mental, or emotional condition, do you have difficulty doing errands alone such as visiting a doctor's office or shopping? Answer Date of Assessment Author No 07/11/2013 9:15 AM Erika Church documented as of this encounter Mental Status * Because of a physical, mental, or emotional condition, do you have serious difficulty concentrating, remembering, or making decisions? Answer Entry Date Author No 07/11/2013 9:15 AM Erika Church documented in this encounter Plan of Treatment Not on file documented as of this encounter Visit Diagnoses Not on filedocumented in this encounter Care Teams Client Evaluator Relationship Specialty Start Date End Date Phylicia Del Castillo CNP [address] [place] [id number] PCP - General Family Medicine 05/19/17 documented as of this encounter
--- OUTSIDE RECORDS SUMMARY | 2024-11-08 20:32 | XMS_ITS | Clinical Summary ---
Author Organization [facility] Address [address] [place] [address] Care Team Providers Care Engineer Conductor Name Role Phone Oscar Escudero MD Primary Care Provider [phone] Bhargav Liriano FULL TIME PARAMEDIC Unavailable [phone] Judie Reynolds LPN Unavailable [phone] Allergies Active Allergy Reactions Criticality Noted Date Comments Codeine Anaphylaxis,Unknown High 09/08/2022 Hydrocodone-Acetaminop hen Unknown Low 09/08/2022 Hydromorphone Hallucinations Low 09/08/2022 Loratadine Low 01/09/2014 Other Reaction(s): Intolerance Other reaction(s): Intolerance Morphine And Codeine Rash Low 06/10/2015 Other Reaction(s): GI Upset Phenobarbital Other Low 08/29/2009 Wound Dressing Adhesive Unknown Low 09/08/2022 Medications Cyanocobalamin 1000 MCG capsule Take 1 tablet by mouth 1 (one) time each day at the same time. Active Ascorbic Acid (vitamin C) 1000 MG tablet Take 1 tablet by mouth 1 (one) time each day at the same time. Active metoprolol tartrate (Lopressor) 50 MG tablet Take 1 tablet by mouth every 12 (twelve) hours. Active acetaminophen (Tylenol) 500 MG tablet Take 500 mg by mouth every 6 (six) hours if needed. 09/10/19 23 Active lidocaine (Lidoderm) 5 % patch Apply 1 patch topically Daily as needed 01/28/20 23 Active potassium chloride CR (Klor-Con) 10 MEQ ER tablet Take 10 mEq by mouth in the morning. 03/11/20 23 Active ipratropium (Atrovent) 0.02 % nebulizer solution Inhale 0.5 mg in the morning and 0.5 mg at noon and 0.5 mg in the evening and 0.5 mg before bedtime. 04/11/20 23 Active albuterol (2.5 MG/3ML) 0.083% nebulizer solutionIndicati ons:Chronic obstructive pulmonary disease with acute exacerbation (HCC) Take 3 mL (2.5 mg) by nebulization every 4 (four) hours if needed for wheezing 360 mL 3 02/03/20 24 Active DULoxetine (Cymbalta) [address] capsuleIndicatio ns:Generalized anxiety disorder TAKE 1 CAPSULE BY MOUTH ONCE DAILY 90 capsule 2 04/03/20 24 Active rosuvastatin (Crestor) 10 MG tabletIndication s:High cholesterol Take 1 tablet (10 mg) by mouth Daily 30 tablet 5 05/22/19 25 025 Active pregabalin (Lyrica) 25 MG capsuleIndicatio ns:Cervical spondylosis with radiculopathy,Re stless legs Take 1 capsule (25 mg) by mouth Daily AND 2 capsules (50 mg) at bedtime. 90 capsule 2 05/26/19 25 Active aspirin 325 MG EC tabletIndication s:PAF (paroxysmal atrial fibrillation) (HCC) Take 1 tablet (325 mg) by mouth Daily 90 tablet 3 06/26/19 25 Active albuterol HFA 90 mcg/act inhalerIndicatio ns:Bacterial pneumonia INHALE 1 TO 2 PUFFS BY MOUTH AND INTO THE LUNGS EVERY 4 HOURS IF NEEDED 18 g 3 08/30/19 25 Active cholecalciferol (Vitamin D3) 25 MCG (1000 UT) tabletIndication s:Vitamin D deficiency Take 1 tablet (25 mcg) by mouth Daily 90 tablet 3 08/31/19 25 Active omeprazole (PriLOSEC) [address] capsuleIndicatio ns:Gastroesophag eal reflux disease without esophagitis TAKE 1 CAPSULE(20 MG) BY MOUTH DAILY. DO NOT CRUSH OR CHEW 90 capsule 3 09/27/19 25 Active ALPRAZolam (Xanax) 0.5 MG tabletIndication s:Generalized anxiety disorder Take 1 tablet (0.5 mg) by mouth 2 (two) times a day as needed for anxiety 60 tablet 2 09/27/19 25 Active cephalexin (Keflex) 500 MG capsuleIndicatio ns:Folliculitis Take 1 capsule (500 mg) by mouth in the morning and 1 capsule (500 mg) in the evening and 1 capsule (500 mg) before bedtime. Do all this for 10 days. 30 capsule 11/09/19 25 025 Active calcium carbonate 1500 (600 Ca) MG tablet Take 1 tablet by mouth in the morning. 025 Discontin ued(Thera py completed ) fluticasone (Flonase) 50 MCG/ACT nasal spray Administer 2 sprays into each nostril Daily as needed 025 Discontin ued(Thera py completed ) rOPINIRole (Requip) 0.5 MG tabletIndication s:RLS (restless legs syndrome) take 1 tablet by mouth 1 TO 3 HOURS PRIOR TO BEDTIME 90 tablet 3 06/21/19 24 025 Discontin ued(Thera py completed ) cyclobenzaprine (Flexeril) 10 MG tablet Take 10 mg by mouth 2 (two) times a day as needed 02/01/20 24 025 Discontin ued(Thera py completed ) Active Problems Problem Noted Date Diagnosed Date Mixed hyperlipidemia 05/29/2024 Panic attacks 04/29/2024 Seizure 04/22/2023 Overview (04/22/2023): trauma induced, none for years History of kidney stones 04/04/2023 Primary osteoarthritis involving multiple joints 04/04/2023 Cervical disc displacement 01/08/2023 Chondromalacia patellae, right knee 01/08/2023 Posttraumatic stress disorder 01/08/2023 PAF (paroxysmal atrial fibrillation) 09/11/2022 Cervical spondylosis with radiculopathy 09/12/19 23 Chronic fatigue syndrome 09/11/2022 Gastroesophageal reflux disease 09/11/2022 Generalized anxiety disorder 09/11/2022 H/O: hysterectomy 09/11/2022 Vitamin B12 deficiency 09/11/2022 RLS (restless legs syndrome) 09/11/2022 Peripheral neuropathy 09/11/2022 Memory loss 09/11/2022 Chronic seasonal allergic rhinitis 09/11/2022 Chronic frontal sinusitis 09/11/2022 Tobacco use 08/20/2022 Hearing decreased 07/04/2020 Tinnitus 07/04/2020 Chronic bilateral low back pain without sciatica 11/18/2017 Fibromyalgia 10/06/2017 Vitamin D deficiency 08/23/2017 Bilateral carpal tunnel syndrome 03/30/2017 Chronic hepatitis C virus infection 07/11/2013 Encounters Date Type Department Care Team Description 11/08/2024 1:00 PM EDT Office Visit [facility] [address] [facility] [address] [place] [address] Tony Montoya, DO Well woman exam with routine gynecological exam; Postmenopausal state; Folliculitis 11/08/2024 9:30 AM EDT Ancillary Procedure [facility] [address] [place] [address] Arrived 11/08/2024 Travel 11/08/2024 Results Follow-Up [facility] [address] [place] [address] Danielle Kasper, FULL TIME PARAMEDIC 11/07/2024 10:15 AM EDT Office Visit [facility] [address] [place] [address] Oscar Escudero MD Annual physical exam (Primary Dx); Mixed hyperlipidemia ; PAF (paroxysmal atrial fibrillation) (HCC); Generalized anxiety disorder ; Peripheral polyneuropathy; RLS (restless legs syndrome); Posttraumatic stress disorder ; Vitamin B12 deficiency; Vitamin D deficiency; Chronic bilateral low back pain without sciatica; Coccyx pain; Fall, initial encounter; Neck swelling; Cervical lymphadenopathy 11/07/2024 Travel 09/26/2024 Refill [facility] [address] [place] [address] Praveena Vargas LPN Generalized anxiety disorder 09/26/2024 Refill [facility] [address] [place] [address] Oscar Escudero MD Generalized anxiety disorder 09/23/2024 Refill [facility] [address] [place] [address] Oscar Escudero MD Gastroesophageal reflux disease without esophagitis 09/13/2024 Patient Outreach [facility] [address] [place] [address] Judie Reynolds LPN 08/30/2024 Refill [facility] [address] [place] [address] Tootie Wheeler MA Vitamin D deficiency 08/29/2024 Refill [facility] [address] [place] [address] Oscar Escudero MD Bacterial pneumonia 08/23/2024 Patient Outreach [facility] [address] [place] [address] Judie Reynolds LPN from Last 3 Months Immunizations Immunization Administration Dates Next Due Hep A, Unspecified 04/05/2014,02/22/2014 Hep B, adult 04/05/2014,02/22/2014 Influenza, [place] e Kidney, subunit, trivalent, injectable, contains preservative 04/13/2024 Influenza, Unspecified 01/31/2016 Influenza, injectable, MDCK, preservative free, quadrivalent 03/19/2021,03/04/2020 Influenza, injectable, MDCK, quadrivalent 2018 Influenza, injectable, quadr ivalent, preservative free 02/16/2018,01/06/2017,01/15/2016 Pneumococcal Conjugate PCV 13 01/31/2016 Pneumococcal Polysaccharide PPSV23 05/03/2020, Td (adult), 5 Lf tetanus tox oid, preservative free, adsorbed 09/14/2013 Family History Medical History Relation Name Comments Asthma Brother 1 Jose Manuel Jose Cancer Brother 1 Jose Manuelcharan Garcia Clotting disorder Brother 1 Jose Manuelcharan Garcia Pancreatic cancer Brother 3 No Known Problems Daughter Skin cancer Father Hesham Garcia Vision loss Father Hesham Jose Cancer Mother Naveed Garcia Depression Mother Naveed Garcia Diabetes Mother Naveed Garcia Heart disease Mother Naveed Garcia Hypertension Mother Naveed Garcia Learning disabilities Mother Naveed Garcia Mental illness Mother Naveed Garcia Miscarriages / Stillbirths Mother Naveed Pineda k Stroke Mother Naveed Garcia complications from staph infection Mother Evin Garcia Parkinsonism Paternal Grandmother Arthritis Sister 1 Yanira Garcia No Known Problems Son Relation Name Status Comments Brother 1 Jose Manuel Garcia Brother 2 Alive Brother 3 Daughter 1 daughter Father Hesham Garcia Mother Naveed Garcia Paternal Grandmother Sister 1 Yanira Garcia Sister 2 Alive Sister 3 Alive Sister 4 Alive Sister 5 Alive Son 1 son Social History Tobacco Use Types Packs/Day Years Used Date Smoking Tobacco: Every Day Cigarettes 1 47.5 Started: 1976 Smokeless Tobacco: Never Tobacco Cessation:Ready to Q uit: Not Asked; Counseling Given: Not Answered Comments:11-20 cigs/day Alcohol Use Standard Drinks/Week Comments [...] file Not on file Not on file Last Filed Vital Signs Vital Sign Reading Time Taken Comments Blood Pressure 110/60 11/08/2024 1:13 PM EDT Pulse 71 11/07/2024 10:31 AM EDT Temperature 36.2 C (97.1 F) 03/02/2024 3:55 PM EDT Respiratory Rate - - Oxygen Saturation 98% 11/07/2024 10:31 AM EDT Inhaled Oxygen Concentration - - Weight 88.2 kg (194 lb 6.4 oz) 11/08/2024 1:13 P M EDT Height 165.1 cm (5' 5 ) 11/07/2024 10:31 AM EDT Body Mass Index 32.35 11/07/2024 10:31 AM EDT Plan of Treatment Upcoming Encounters Date Type Department Care Team (Late st Contact Info) Description 05/10/2025 9:45 AM EST Office Visit [facility] [address] [place] [address] 11/12/2025 8:30 AM EDT Office Visit [facility] [address] [facility] [place] [phone] Tony Montoya, DO [address] [facility] [place] [address] Health Maintenance Due Date Last Done Comments CT Colonography 1966 FIT-DNA 1966 FIT 1966 Lung Cancer Screening Shared Decision Making 1966 Sigmoidoscopy 1966 FOBT 06/30/2020 07/01/2019 Influenza Vaccine (#1) 2025 , 03/19/2021, 03/04/2020, Additional history exists Mammogram 05/19/2025 05/19/2024, 070 08/2021, 11/04/2021, Additional history exists Colonoscopy 10/28/2033 10/29/2023, 10/02, 12/03/2014 Colorectal Cancer Screening 10/28/2033 Goals Goal Patient Goal Type Associated Problems Recent Progress Patient-Stated? Author Smoking cessation General No Zina Lawler LPN Procedures Procedure Name Priority Date/Time Associated Diagnosis Comments VITAMIN D 25 HYDROXY TOTAL Routine 11/07/2024 9:15 AM EDT Vitamin D deficiency LIPID PANEL Routine 11/07/2024 9:15 AM EDT Pure hypercholesterolemia VITAMIN B12 Routine 11/07/2024 9:15 AM EDT Vitamin B12 deficiency COMPREHENSIVE METABOLIC PANEL Routine 11/07/2024 9:15 AM EDT Pure hypercholesterolemia CBC (INCLUDES DIFF/PLT) Routine 11/07/2024 9:15 AM EDT Annual physical exam BI MAMMOGRAM DIAGNOSTIC TOMOSYNTHESIS BILATERAL Routine 05/19/2024 12:00 PM EST Breast cancer screening by mammogram Pain in left axilla Pain in breast STOOL OCCULT BL. SCR. (GUAIAC) Routine 07/01/2019 COLONOSCOPY Routine 12/03/2014 12:00 PM EDT from Last 3 Months or Most Recently Relevant to Health Maintenance Results * Vitamin D 25 hydroxy Total (11/07/2024 9:15 AM EDT) VITAMIN D,25-OH,TOTAL,IA 43 30 - 100 ng/mL [facility] Comment: Vitamin D Status 25-OH Vitamin D: Deficiency: <20 ng/mL Insufficiency: 20 - 29 ng/mL Optimal: > or = 30 ng/mL For 25-OH Vitamin D testing on patients on D2-supplementation and patients for whom quantitation of D2 and D3 fractions is required, the QuestAssureD(TM) 25-OH VIT D, (D2,D3), LC/MS/MS is recommended: order code [id number] (patients >2yrs). See Note 1 Note 1 For additional information, please refer to http://education.Tubis/faq/PZZ220 (This link is being provided for informational/ educational purposes only.) Blood Venous blood specimen / Unknown 11/07/2024 9:15 AM EDT 11/07/2024 9:16 AM EDT Narrative [facility] - 11/08/2024 9:56 AM EDT FASTING:YES FASTING: YES Resulting Agency Comment Performing Organization Information Site ID: QPT Name: [facility] Address: [address] [place] [address], [address] [place] [phone] Director: Nicko Mancuso MD us Oscar Escudero MD LAB BLOOD ORDERABLES Final Resu lt [facility] * CBC and differential (11/07/2024 9:15 AM EDT) WHITE BLOOD CELL COUNT 6.0 3.8 - 10.8 Thousand/u L [facility] RED BLOOD CELL COUNT 4.60 3.80 - 5.10 Million/uL [facility] HEMOGLOBIN 13.7 11.7 - 15.5 g/dL [facility] HEMATOCRIT 42.7 35.0 - 45.0 % [facility] MCV 92.8 80.0 - 100.0 fL [facility] MCH 29.8 27.0 - 33.0 pg [facility] MCHC 32.1 32.0 - 36.0 g/dL [facility] Comment: For adults, a slight decrease in the calculated MCHC value (in the range of 30 to 32 g/dL) is most likely not clinically significant; however, it should be interpreted with caution in correlation with other red cell parameters and the patient's clinical condition. RDW 13.7 11.0 - 15.0 % [facility] PLATELET COUNT 214 140 - 400 Thousand/u L [facility] MPV 10.1 7.5 - 12.5 fL [facility] ABSOLUTE NEUTROPHILS 3,654 1,500 - 7,800 cells/uL [facility] ABSOLUTE LYMPHOCYTES 1,776 850 - 3,900 cells/uL [facility] ABSOLUTE MONOCYTES 480 200 - 950 cells/uL [facility] ABSOLUTE EOSINOPHILS 48 15 - 500 cells/uL [facility] ABSOLUTE BASOPHILS 42 0 - 200 cells/uL [facility] NEUTROPHILS 60.9 % [facility] LYMPHOCYTES 29.6 % [facility] MONOCYTES 8.0 % [facility] EOSINOPHILS 0.8 % [facility] BASOPHILS 0.7 % [facility] Blood Venous blood specimen / Unknown 11/07/2024 9:15 AM EDT 11/07/2024 9:16 AM EDT Narrative [facility] - 11/08/2024 9:56 AM EDT FASTING:YES FASTING: YES Resulting Agency Comment Performing Organization Information Site ID: QPT Name: [facility] Address: [address] [place] [phone] Director: Nicko Mancuso MD Oscar Escudero MD LAB BLOOD ORDERABLES Final Resu lt [facility] * Vitamin B12 (11/07/2024 9:15 AM EDT) [facility] VITAMIN B12 346 200 - 1,100 pg/mL [facility] Comment: Please Note: Although the reference range for vitamin B12 is 200-1100 pg/mL, it has been reported that between 5 and 10% of patients with values between 200 and 400 pg/mL may experience neuropsychiatric and hematologic abnormalities due to occult B12 deficiency; less than 1% of patients with values above 400 pg/mL will have symptoms. Blood Venous blood specimen / Unknown 11/07/2024 9:15 AM EDT 11/07/2024 9:16 AM EDT Narrative [facility] - 11/08/2024 9:56 AM EDT FASTING:YES FASTING: YES Resulting Agency Comment Performing Organization Information Site ID: QPT Name: [facility] Address: [address] [place] [address], [address] [place] [phone] Director: Nicko Mancuso MD Oscar Escudero MD LAB BLOOD ORDERABLES Final Resu lt [facility] * (ABNORMAL) Lipid panel (11/07/2024 9:15 AM EDT) CHOLESTEROL, TOTAL 140 <200 mg/dL [facility] HDL CHOLESTEROL 42(L) > OR = 50 mg/dL [facility] TRIGLYCERIDES 174(H) <150 mg/dL [facility] LDL CHOLESTEROL 73 mg/dL (calc) [facility] Comment: Reference range: <100 Desirable range <100 mg/dL for primary prevention; <70 mg/dL for patients with CHD or diabetic patients with > or = 2 CHD risk factors. LDL-C is now calculated using the Dinh-Ramírez calculation, which is a validated novel method providing better accuracy than the Friedewald equation in the estimation of LDL-C. Dinh SS et al. SRAVANI. 2013;310(19): 4209-8107 (http://education.InfernoRed Technology.Kaldoora/faq/CUZ968) CHOL/HDLC RATIO 3.3 <5.0 (calc) [facility] NON HDL CHOLESTEROL 98 <130 mg/dL (calc) [facility] Comment: For patients with diabetes plus 1 major ASCVD risk factor, treating to a non-HDL-C goal of <100 mg/dL (LDL-C of <70 mg/dL) is considered a therapeutic option. Blood Venous blood specimen / Unknown 11/07/2024 9:15 AM EDT 11/07/2024 9:16 AM EDT Narrative [facility] - 11/08/2024 9:56 AM EDT FASTING:YES FASTING: YES Resulting Agency Comment Performing Organization Information Site ID: QPT Name: [facility] Address: [address], [address] [place] [address] Director: Nicko Mancuso MD us Oscar Escudero MD LAB BLOOD ORDERABLES Final Resu lt [facility] * (ABNORMAL) Comprehensive metabolic panel (11/07/2024 9:15 AM EDT) Glucose 100(H) 65 - 99 mg/dL [facility] Comment: Fasting reference interval For someone without known diabetes, a glucose value between 100 and 125 mg/dL is consistent with prediabetes and should be confirmed with a follow-up test. BUN 9 7 - 25 mg/dL [facility] Creatinine 0.66 0.50 - 1.03 mg/dL [facility] EGFR 102 > OR = 60 mL/min/1. 73m2 [facility] BUN/CREATININE RATIO SEE NOTE: 6 - 22 (calc) [facility] Comment: Not Reported: BUN and Creatinine are within reference range. Sodium 141 135 - 146 mmol/L [facility] Potassium, Bld 3.8 3.5 - 5.3 mmol/L [facility] Chloride 108 98 - 110 mmol/L [facility] Carbon Dioxide 25 20 - 32 mmol/L [facility] Calcium 8.8 8.6 - 10.4 mg/dL [facility] PROTEIN, TOTAL 6.0(L) 6.1 - 8.1 g/dL [facility] ALBUMIN 4.1 3.6 - 5.1 g/dL [facility] GLOBULIN 1.9 1.9 - 3.7 g/dL (calc) [facility] ALBUMIN/GLOBULIN RATIO 2.2 1.0 - 2.5 (calc) [facility] BILIRUBIN, TOTAL 0.4 0.2 - 1.2 mg/dL [facility] ALKALINE PHOSPHATASE 58 37 - 153 U/L [facility] AST 13 10 - 35 U/L [facility] ALT 10 6 - 29 U/L [facility] Blood Venous blood specimen / Unknown 11/07/2024 9:15 AM EDT 11/07/2024 9:16 AM EDT Narrative [facility] - 11/08/2024 9:56 AM EDT FASTING:YES FASTING: YES Resulting Agency Comment Performing Organization Information Site ID: QPT Name: [facility] Address: [address] [place] [address] Director: Nicko Mancuso MD us Oscar Escudero MD LAB BLOOD ORDERABLES Final Resu lt [facility] * Bilateral diagnostic mammogram with tomosynthesis (05/19/2024 12:00 PM EST) Anatomical Region Laterality Modality Breast Bilateral Mammography 05/22/2024 12:3 5 PM EST Impressions 05/22/2024 12:46 PM EST No specific evidence of malignancy seen in either breast. BIRADS 2 - Benign Findings DENSITY: There are scattered areas of fibroglandular density. FOLLOW-UP: Routine Screening Mammogram Board Certified Radiologists. Accredited by the ACR and FDA. MAMMOGRAPHY IS VERY IMPORTANT TO YOUR HEALTH. THE [place] [employer] GUIDELINES RECOMMEND THAT WOMEN 40 YEARS OF AGE AND OLDER SHOULD HAVE A MAMMOGRAM EVERY YEAR. A REMINDER LETTER WILL BE SENT AT THE APPROPRIATE TIME. ELECTRONICALLY SIGNED BY: Wally Austin M.D. Narrative 05/22/2024 12:46 PM EST EXAMINATION: BI MAMMOGRAM DIAGNOSTIC TOMOSYNTHESIS BILATERAL CLINICAL HISTORY: breast cancer screening, pain in left breast TECHNIQUE: Diagnostic digital mammogram study of both breasts was performed with 2D and 3D tomosynthesis imaging. Study was compared to the screening mammogram study of the breasts dated 11/04/2021 and left breast ultrasound study dated 05/19/2024. FINDINGS: Standard views of the breasts as well as true lateral view of the left breast were obtained. There is no evidence of interval dominant spiculated mass, grouped microcalcifications or skin thickening which would be suggestive of malignancy. A few benign-appearing calcifications are seen bilaterally including vascular calcifications on the left. Axillary lymph node is noted on the right. Left breast ultrasound study demonstrates likely small cyst. Procedure Note Wally Austin MD - 05/22/2024 EXAMINATION: BI MAMMOGRAM DIAGNOSTIC TOMOSYNTHESIS BILATERAL CLINICAL HISTORY: breast cancer screening, pain in left breast TECHNIQUE: Diagnostic digital mammogram study of both breasts wasperformed with 2D and 3D tomosynthesis imaging. Study was compared to thescreening mammogram study of the breasts dated 11/04/2021 and left breastultrasound study dated 05/19/2024. FINDINGS: Standard views of the breasts as well as true lateral view ofthe left breast were obtained. There is no evidence of interval dominantspiculated mass, grouped microcalcifications or skin thickening whichwould be suggestive of malignancy. A few benign-appearing calcificationsare seen bilaterally including vascular calcifications on the left.Axillary lymph node is noted on the right. Left breast ultrasound studydemonstrates likely small cyst. IMPRESSION: No specific evidence of malignancy seen in either breast. BIRADS 2 - Benign Findings DENSITY: There are scattered areas of fibroglandular density. FOLLOW-UP: Routine Screening Mammogram Board Certified Radiologists. Accredited by the ACR and FDA. MAMMOGRAPHY IS VERY IMPORTANT TO YOUR HEALTH. THE [place] [employer]UIDELINES RECOMMEND THAT WOMEN 40 YEARS OF AGE AND OLDER SHOULD HAVE AMAMMOGRAM EVERY YEAR. A REMINDER LETTER WILL BE SENT AT THE APPROPRIATE TIME. ELECTRONICALLY SIGNED BY: Wally Austin M.D. us Danielle Kasper NP IMG BI PROCEDURES Final Resul t * STOOL OCCULT BL. SCR. (GUAIAC) (07/01/2019) FECAL OCCULT BLOOD Negative for Occult Blood by Guaiac Methodology [facility] REFERENCE NOTE 1 [facility] REFERENCE NOTE 2 Reference range = Negative [facility] LACTOFERRIN, STOOL WBC [facility] Comment: Reason for Exam Abnormal stool color Stool LACTOFERRIN Negative for Fecal Lactoferrin [facility] REFERENCE NOTE 10 Immune suppression may cause reduced WBC counts, [facility] REFERENCE NOTE 11 leading to a false negative result. [facility] [id number] [facility] REFERENCE NOTE 1 [facility] REFERENCE NOTE 2 Reference range = Negative [facility] 07/01/2019 Chela Mcadams NP [facility] Final Result [facility] * Colonoscopy (12/03/2014 12:00 PM EDT) Anatomical Region Laterality Modality Endoscopy 12/03/2014 12:0 0 PM EDT Narrative 12/03/2014 12:00 PM EDT PERFORMED AT [facility] LOCATION:[id number] sigmoid, rectal polyp Procedure Note CONVERSION, GENERIC - 09/17/2022 PERFORMED AT [facility] LOCATION:[id number] sigmoid, rectal polyp Oscar Escudero MD ENDOSCOPY PROCEDURE ORDERABLES Final Result from Last 3 Months or Most Recently Relevant to Health Maintenance Insurance [employer] Care Teams Engineer Conductor Relationship Specialty Start Date End Date Oscar Escudero MD [address] [place] [phone] PCP - General Internal Medicine 10/06/22 Bhargav Liriano NP [address] [place], [place] [id number] PCP - [facility] 08/01/22 Judie Reynolds, WENDY [address] [place] [address] Licensed Practical Nurse Family Medicine 01/13/23
--- OUTSIDE RECORDS SUMMARY | 2024-11-08 20:32 | XMS_ITS | Encounter Summary ---
Author Organization [facility] Address [address] [place] [address] Care Team Providers Care City Surveyor Name Role Phone Oscar Escudero MD Primary Care Provider [phone] Reason for Visit * Reason Comments Medication Refill Encounter Details Date Type Department Care Team (Late st Contact Info) Description 08/23/[address] [phone] Phylicia Del Castillo, FULFILLMENT REPRESENTATIVE - MICA MINER Medication Refill Social History Tobacco Use Types Packs/Day Years Used Date Smoking Tobacco: Every Day Cigarettes 0.5 25 Smokeless Tobacco: Never Alcohol Use Standard Drinks/Week Comments No 0 (1 standard drink = 0.6 oz pur e alcohol) Comments No Sex and Gender Information Value Date Recorded Sex Assigned at Not on file Legal Sex Female 6:18 PM EST Gender Identity Not on file Sexual Orientation Not on file documented as of this encounter Plan of Treatment Not on file documented as of this encounter Visit Diagnoses Diagnosis Anxiety Anxiety state, unspecified documented in this encounter Care Teams City Surveyor Relationship Specialty Start Date End Date Oscar Escudero MD [address] [place] [address] PCP - General 10/29/23 documented as of this encounter
--- OUTSIDE RECORDS SUMMARY | 2024-11-08 20:32 | XMS_ITS | Encounter Summary ---
Author Organization [facility] Address [address] [place] [address] Care Team Providers Care Finger Cobbler Name Role Phone Phylicia Del Castillo DUTCH Primary Care Provider [phone] Source Comments In the event this information is protected by the Federal Confidentiality of Alcohol and Drug AbusePatient Records regulations: The Federal rules restrict any use of the information to criminally investigate or prosecute any alcohol or drug abuse patient.[facility] Encounter Details Date Type Department Care Team (Late st Contact Info) Description 04/07/2019 Patient Msg Neurology [address] [place] [address] [place] [address] [place] [address] Appointment Request Social History Tobacco Use Types Packs/Day Years [...] on filedocumented in this encounter Care Teams Finger Cobbler Relationship Specialty Start Date End Date Phylicia Del Castillo CNP [address] [place] [address] PCP - General Family Medicine 05/19/17 documented as of this encounter
--- OUTSIDE RECORDS SUMMARY | 2024-11-08 20:32 | XMS_ITS | Encounter Summary ---
Author Organization [facility] Address [address] [place] [address] Care Team Providers Care Business Information Analyst Name Role Phone Phylicia Del Castillo DUTCH Primary Care Provider [phone] Source Comments In the event this information is protected by the Federal Confidentiality of Alcohol and Drug AbusePatient Records regulations: The Federal rules restrict any use of the information to criminally investigate or prosecute any alcohol or drug abuse patient.[facility] Encounter Details Date Type Department Care Team (Late st Contact Info) Description 04/07/2019 Patient Msg Neurology [address] [place] [address] [place] [address] [place] [address] RE: Appointment Request Social History Tobacco Use Types [...] on filedocumented in this encounter Care Teams Business Information Analyst Relationship Specialty Start Date End Date Phylicia Del Castillo CNP [address] [place] [address] PCP - General Family Medicine 05/19/17 documented as of this encounter
--- OUTSIDE RECORDS SUMMARY | 2024-11-08 20:32 | XMS_ITS | Encounter Summary ---
Author Organization [facility] Address [facility] [place] [address] Care Team Providers Care Director Video Name Role Phone Pcp, Julia COOPERN Primary Care Provider Mitra Dinero (Hist) Primary Care Provider Phylicia Mantilla [facility] Primary Care Provider [phone] Source Comments In the event this information is protected by the Federal Confidentiality of Alcohol and Drug AbusePatient Records regulations: The Federal rules restrict any use of the information to criminally investigate or prosecute any alcohol or drug abuse patient.[facility] Encounter Details Date Type Department Care Team (Late st Contact Info) Description 07/23/2013 Patient Msg Medical Records [address] [place] [address] Provider, Ccf results Social History Tobacco Use Types Packs/Day Years Used Date Smoking Tobacco: Every Day Cigarettes Alcohol Use Standard Drinks/Week Comments No 0 (1 standard drink = 0.6 oz pur e alcohol) Comments Unknown Sex and Gender Information Value Date Recorded Sex Assigned at Not on file Legal Sex Female 11:40 AM EST Gender Identity Not on file Sexual Orientation Not on file documented as of this encounter Functional Status * Are you deaf or do you have serious difficulty hearing? Answer Date of Assessment Author No 07/11/2013 9:15 AM EDErika Brady * Are you blind or do you [...] on filedocumented in this encounter Care Teams Director Video Relationship Specialty Start Date End Date Julia Amor APRN PCP - General 05/26/13 12/31/13 Mitra Ziegler (Hist) [address] [place] [address] PCP - General 02/02/14 05/18/17 Phylicia Del Castillo CNP [address] [place] [address] PCP - General Family Medicine 05/19/17 documented as of this encounter
--- OUTSIDE RECORDS SUMMARY | 2024-11-08 20:32 | XMS_ITS | Encounter Summary ---
Author Organization [facility] Address [address] [place], [place] [id number] Care Team Providers Care Director Of Publications Name Role Phone Phylicia Del Castillo DUTCH Primary Care Provider [phone] Source Comments In the event this information is protected by the Federal Confidentiality of Alcohol and Drug AbusePatient Records regulations: The Federal rules restrict any use of the information to criminally investigate or prosecute any alcohol or drug abuse patient.[facility] Encounter Details Date Type Department Care Team (Late st Contact Info) Description 04/10/2018 Patient Msg Gastroenterology [address] [id number] Kandace Penn MD, PhD [address] [place], [place] [phone] followup Social History Tobacco Use Types Packs/Day [...] filedocumented in this encounter Care Teams Director Of Publications Relationship Specialty Start Date End Date Phylicia Del Castillo CNP [address] [place], [place] [id number] PCP - General Family Medicine 05/19/17 documented as of this encounter
--- OUTSIDE RECORDS SUMMARY | 2024-11-08 20:32 | XMS_ITS | Encounter Summary ---
Author Organization [facility] Address [address] [place] [address] Care Team Providers Care Quality Assurance Supervisor Trim Name Role Phone Oscar Escudero MD Primary Care Provider [phone] Reason for Visit * Reason Comments Medication Refill Encounter Details Date Type Department Care Team (Late st Contact Info) Description 01/23/[address] [phone] Phylicia Del Castillo, SPECIAL EDUCATION KINDERGARTEN TEACHER - VICE PRESIDENT OF TALENT MANAGEMENT Medication Refill Social History Tobacco Use Types [...] Visit Diagnoses Diagnosis Anxiety Anxiety state, unspecified Restless leg syndrome Restless legs syndrome (RLS) documented in this encounter Care Teams Quality Assurance Supervisor Trim Relationship Specialty Start Date End Date Oscar Escudero MD [address] [place] [address] PCP - General 10/29/23 documented as of this encounter
--- OUTSIDE RECORDS SUMMARY | 2024-11-08 20:32 | XMS_ITS | Encounter Summary ---
Author Organization [facility] Address [address] [place] [address] Care Team Providers Care Treasury Specialist Name Role Phone Oscar Escudero MD Primary Care Provider [phone] Bhargav Liriano ASSOCIATE DIRECTOR QA Unavailable [phone] Judie Reynolds LPN Unavailable [phone] Encounter Details Date Type Department Care Team (Latest Contact Info) Description 11/08/2024 Travel Social History Tobacco Use Types Packs/Day Years [...] IM [address] [place] [address] 11/12/2025 8:30 AM EDT Office Visit [facility] [address] [place] [id number] Tony Montoya, [address] [place] [address] documented as of this encounter Goals Goal Patient Goal Type Associated Problems Recent Progress Patient-Stated? Author Smoking cessation General No Zina Lawler LPN documented as of this encounter Visit Diagnoses Not on filedocumented in this encounter Care Teams Treasury Specialist Relationship Specialty Start Date End Date Oscar Escudero MD [address] [place] [address] PCP - General Internal Medicine 10/06/22 Bhargav Liriano, ASSOCIATE DIRECTOR QA [address] [facility] [place] [address] PCP - [facility] 08/01/22 Judie Reynolds LPN [address] [place] [address] Licensed Practical Nurse Family Medicine 01/13/23 documented as of this encounter
--- OUTSIDE RECORDS SUMMARY | 2024-11-08 20:32 | XMS_ITS | Encounter Summary ---
Author [facility] [employer] [facility] Address [id number] [address] [place] [address] Care Team Providers Care Paper Baling Machine Operator Name Role Phone Oscar Escudero MD Primary Care Provider [phone] Reason for Visit * Reason Onset Date Comments medication remind 01/28/2021 Encounter Details Date Type Department Care Team (Late st Contact Info) Description 01/28/2021 [facility]phone [facility] [address] [facility] [address] [place] [address] Manasa Mckeon MA medication remind Social History Tobacco Use Types Packs/Day Years [...] often do you attend chur ch or yarsani services? Never 01/12/2020 Do you belong to any clubs o r organizations such as sikh groups, unions, fraternal or athletic groups, or [...] Answer Date Recorded Total Score 2 01/12/2020 [facility] [place] [facility] Occupat ional Health - Occupational Stress [...] Recorded Do you need help finding a [employer] [facility] career center and/or a training program? No 01/12/2020 Purpose - Life Answer Date Recorded Purpose [...] have Coronavirus / COVID-19? No / Unsure 01/28/2021 1:53 PM EDT documented as of this encounter Miscellaneous Notes * Telephone Encounter - Manasa Mckeon MA - 01/28/2021 9:15 AM EDT Called patient to remind them to bring their most current copy of medication list with them to their appt. Patient verbalizes understanding. documented in this encounter Plan of Treatment Not on file documented as of this encounter Visit Diagnoses Not on filedocumented in this encounter Additional Health Concerns Infection Onset Date Last Indicated Resolved Time COVID-19 Rule-Out 02/27/2021 02/27/2021 02/27/2021 9:29 AM [...] documented as of this encounter Care Teams Paper Baling Machine Operator Relationship Specialty Start Date End Date Oscar Escudero MD [address] [place] [address], [address] [id number] PCP - General Internal Medicine 08/21/24 documented as of this encounter
--- OUTSIDE RECORDS SUMMARY | 2024-11-08 20:32 | XMS_ITS | Encounter Summary ---
Author Organization [facility] Address [facility] [place] [address] Care Team Providers Care Career Placement Specialist Name Role Phone Pcp, Julia COOPERN Primary Care Provider Mitra Dinero (Hist) Primary Care Provider Phylicia Mantilla [facility] Primary Care Provider [phone] Source Comments In the event this information is protected by the Federal Confidentiality of Alcohol and Drug AbusePatient Records regulations: The Federal rules restrict any use of the information to criminally investigate or prosecute any alcohol or drug abuse patient.[facility] Encounter Details Date Type Department Care Team (Late st Contact Info) Description 07/18/2013 Patient Msg Medical Records [address] [place] [address] Provider, Ccf followup re kidney test Social History Tobacco Use Types Packs/Day Years [...] on filedocumented in this encounter Care Teams Career Placement Specialist Relationship Specialty Start Date End Date Pcp, Julia, DANIELLE PCP - General 05/26/13 12/31/13 Mitra Ziegler (Hist) [address] [place] [address] PCP - General 02/02/14 05/18/17 Phylicia Del Castillo CNP [address] [place] [address] PCP - General Family Medicine 05/19/17 documented as of this encounter
--- OUTSIDE RECORDS SUMMARY | 2024-11-08 20:32 | XMS_ITS | Encounter Summary ---
Author Organization [facility] Address [address] [place] [address] Care Team Providers Care Psychotherapist Counselor Name Role Phone Oscar Escudero MD Primary Care Provider [phone] Reason for Visit * Reason Comments Medication Refill Encounter Details Date Type Department Care Team (Late st Contact Info) Description 07/27/[address] [phone] Phylicia Del Castillo, SIZE MAKER - REIMBURSEMENT MANAGER Medication Refill Social History Tobacco Use Types [...] unspecified documented in this encounter Care Teams Psychotherapist Counselor Relationship Specialty Start Date End Date Oscar Escudero MD [address] [place] [address] PCP - General 10/29/23 documented as of this encounter
--- OUTSIDE RECORDS SUMMARY | 2024-11-08 20:32 | XMS_ITS | Encounter Summary ---
Author Organization [facility] Address [address] [place] [address] Care Team Providers Care Cotton Farmer Name Role Phone Oscar Escudero MD Primary Care Provider [phone] Reason for Visit * Reason Comments Medication Refill Encounter Details Date Type Department Care Team (Late st Contact Info) Description 09/25/[address] [phone] Phylicia Del Castillo, CUSTOMER SERVICE CASHIER - IRRIGATION DISTRICT MANAGER Medication Refill Social History Tobacco Use [...] unspecified documented in this encounter Care Teams Cotton Farmer Relationship Specialty Start Date End Date Oscar Escudero MD [address] [place] [address] PCP - General 10/29/23 documented as of this encounter
--- OUTSIDE RECORDS SUMMARY | 2024-11-08 20:32 | XMS_ITS | Encounter Summary ---
Author Organization [facility] Address [address] [place] [address] Care Team Providers Care Flour Worker Name Role Phone Oscar Escudero MD Primary Care Provider Reason for Visit * Reason Comments Medication Refill Encounter Details Date Type Department Care Team (Late st Contact Info) Description 12/24/[address] [phone] Phylicia Del Castillo, CLIENT ONBOARDING ANALYST - POSTING CLERK Medication Refill Social History Tobacco Use Types [...] unspecified documented in this encounter Care Teams Flour Worker Relationship Specialty Start Date End Date Oscar Escudero MD [address] [place] [address] PCP - General 10/29/23 documented as of this encounter
--- OUTSIDE RECORDS SUMMARY | 2024-11-08 20:32 | XMS_ITS | Encounter Summary ---
Author Organization [facility] Address [address] [facility] [place] [address] Care Team Providers Care Education Analyst Name Role Phone Oscar Escudero MD Primary Care Provider Bhargav Liriano ELECTRICAL MAINTENANCE TECHNICIAN Unavailable [phone] Judie Reynolds LPN Unavailable [phone] Encounter Details Date Type Department Care Team (Latest Contact Info) Description 11/07/2024 Travel Social History Tobacco Use Types Packs/Day [...] as of this encounter Functional Status * Over the past 2 weeks, how often have you been bothered by any of the following problems? Question Answer Date of Assessment Author Little interest or pleasure in doing things Not at all 11/07/2024 10:34 AM EDT Yazmin Escudero M A Feeling down, depressed, or hopeless Not at all 11/07/2024 10:34 AM EDT Yazmin Escudero M A Patient Health Questionnaire -2 Score 0 11/07/2024 10:34 AM EDT Yazmin Escudero M A documented as of this encounter Plan of Treatment Upcoming Encounters Date Type Department Care Team (Late st Contact Info) Description 05/10/2025 9:45 AM EST Office Visit [facility] [address] [place] [address] 11/12/2025 8:30 AM EDT Office Visit [facility] [address] [place] [phone] Tony Montoya DO [address] [place] [address] documented as of this encounter Goals Goal Patient Goal Type Associated Problems Recent Progress Patient-Stated? Author Smoking cessation General No Zina Lawler LPN documented as of this encounter Visit Diagnoses Not on filedocumented in this encounter Care Teams Education Analyst Relationship Specialty Start Date End Date Oscar Escudero MD [address] [place] [address] PCP - General Internal Medicine 10/06/22 Bhargav Liriano NP [address] [place] [address] PCP - [facility] 08/01/22 Judie Reynolds LPN [address] [place] [address] Licensed Practical Nurse Family Medicine 01/13/23 documented as of this encounter
--- OUTSIDE RECORDS SUMMARY | 2024-11-08 20:32 | XMS_ITS | Clinical Summary ---
Author Organization [facility] Address [address] [place] [address] Care Team Providers Care Tax Agent Name Role Phone Oscar Escudero MD Primary Care Provider Allergies Active Allergy Reactions Criticality Noted Date Comments Hydromorphone Hcl Nausea And Vomiting,Hallucina tions Medium 11/27/2014 Diphth-Acell Pertussis-Tetanus Swelling 06/03/2011 Loratadine 06/10/2015 Other reaction(s): Intolerance Morphine And Codeine Rash Low 06/10/2015 Hydrocodone-Acetaminophe n Itching High 02/03/2017 Phenobarbital 06/03/2011 Pseudoephedrine Hcl Anxiety Low 11/27/2014 Medications vitamin D (ERGOCALCIFEROL) 400 UNITS CAPS Take 1 capsule by mouth daily Active Probiotic Product (PROBIOTIC DAILY PO) Take by mouth Active fluticasone (FLONASE) 50 MCG/ACT nasal spray 1 spray by Nasal route daily 1 Bottle 3 6 Active albuterol sulfate HFA (PROAIR HFA) 108 (90 BASE) MCG/ACT inhalerIndicatio ns:Seasonal allergic rhinitis, unspecified allergic rhinitis trigger Inhale 2 puffs into the lungs every 6 hours as needed for Wheezing 1 Inhaler 3 7 Active cetirizine-psued oephedrine (ZYRTEC-D) 5-120 MG per extended release tablet 1 7 Active rOPINIRole (REQUIP) 0.5 MG tabletIndication s:Restless leg syndrome take 1 tablet by mouth twice a day 60 tablet 3 8 Active Glecaprevir-Pibr entasvir (MAVYRET) 100-40 MG TABS take 3 tablets once a day with food for 8 weeks 8 Active senna-docusate (PERICOLACE) 8.6-50 MG per tabletIndication s:Constipation, unspecified constipation type Take 2 tablets by mouth daily as needed for Constipation 60 tablet 5 8 Active calcium-vitamin D (RA HI-LINDA PLUS VITAMIN D) 500-200 MG-UNIT per tablet take 1 tablet by mouth once daily 30 tablet 5 8 Active omeprazole (PRILOSEC) 20 MG delayed release capsule take 1 capsule by mouth once daily 30 capsule 5 8 Active Linaclotide (LINZESS) 72 MCG CAPS Take 1 capsule by mouth before first meal of day. 30 capsule 8 Active Additional Information Patient not taking.Reported on 10/29/2023 metoprolol tartrate (LOPRESSOR) 50 MG tablet Take 1 tablet by mouth 2 times daily Active potassium chloride (KLOR-CON) 10 MEQ extended release tablet Take 1 tablet by mouth every morning 3 Active pregabalin (LYRICA) 25 MG capsule Take 1 capsule by mouth 2 times daily. 4 Active nicotine (NICODERM CQ) 21 MG/24HR Place 1 patch onto the skin every 24 hours 3 Active ipratropium (ATROVENT) 0.02 % nebulizer solution Inhale 2.5 mLs into the lungs 4 times daily 3 Active DULoxetine (CYMBALTA) 60 MG extended release capsule Take 1 capsule by mouth daily 4 Active Cyanocobalamin 1000 MCG CAPS Take 1 tablet by mouth every 24 hours Active RA ASPIRIN EC 325 MG EC tablet Take 1 tablet by mouth daily Active ALPRAZolam (XANAX) 0.5 MG tablet Take 1 tablet by mouth 2 times daily as needed for Anxiety. 4 Active ascorbic acid (VITAMIN C) 1000 MG tablet Take 1 tablet by mouth every 24 hours Active acetaminophen (TYLENOL) 500 MG tablet Take 1 tablet by mouth every 6 hours as needed 3 Active Active Problems Problem Noted Date Diagnosed Date Bilateral carpal tunnel syndrome 03/30/2017 Constipation 01/09/2017 Abdominal pain 12/03/2014 GERD (gastroesophageal reflux disease) 5 Anxiety 11/13/2014 Restless leg syndrome 11/13/2014 Fatigue 11/13/2014 Immunizations Immunization Administration Dates Next Due Hepatitis A 04/05/2014,02/22/2014 Hepatitis B 04/05/2014,02/22/2014 Influenza Vaccine, unspecified formulation 01/30 Influenza, FLUARIX, FLULAVAL , FLUZONE (age 6 mo+) and AFLURIA, (age 3 y+), Quadv PF, 0.5mL 02/16/2018,01/06/2017 Pneumococcal, PCV-13, PREVNAR 13, (age 6w+), IM, 0.5mL 01/31/2016 Family History Medical History Relation Name Comments Asthma Brother Heart Disease Brother Heart Disease Father Breast Cancer Mother Colon Polyps Mother Heart Disease Mother Liver Disease Mother Stroke Mother Inflam Bowel Dis Other Colon Polyps Sister 1 Asthma Sister 2 Relation Name Status Comments Brother Alive Father Mother Other Alive Sister 1 Alive Sister 2 Alive Social History Tobacco Use Types Packs/Day Years Used Date Smoking Tobacco: Every Day Cigarettes 0.5 25 Smokeless Tobacco: Never Tobacco Cessation:Ready to Q uit: Not Asked; Counseling Given: Not Answered Alcohol Use Standard Drinks/Week Comments No 0 (1 standard drink = 0.6 oz pur e alcohol) quit 3 yrs ago PHQ-2 Answer Date Recorded PHQ-2 Score 2 08/03/2018 Interpersonal Safety Domain Source: IP Abuse Scr eening Answer Date Recorded Physical abuse Denies 10/29/2023 Verbal abuse Denies 10/29/2023 Emotional abuse Denies 10/29/2023 Financial abuse Denies 10/29/2023 Sexual abuse Denies 10/29/2023 Comments No Sex and Gender Information Value Date Recorded Sex Assigned at Not on file Legal Sex Female 6:18 PM EST Gender Identity Not on file Sexual Orientation Not on file Last Filed Vital Signs Vital Sign Reading Time Taken Comments Blood Pressure 112/68 10/29/2023 10:30 AM EDT Pulse 64 10/29/2023 10:30 AM EDT Temperature 36.1 C (97 F) 10/29/2023 9:58 AM EDT Respiratory Rate 16 10/29/2023 10:30 AM EDT Oxygen Saturation 96% 10/29/2023 10:30 AM EDT Inhaled Oxygen Concentration - - Weight 82.1 kg (181 lb) 10/29/2023 8:34 AM EDT Height 160 cm (5' 3 ) 10/29/2023 8:34 AM EDT Body Mass Index 32.06 10/29/2023 8:34 AM EDT Plan of Treatment Health Maintenance Due Date Last Done Comments Depression Screen 1978 HIV screen 1981 Hepatitis C screen 1984 FIT/FOBT: Average risk 11/15/2011 Fecal-DNA (Cologuard): Average risk 11/15/2011 Sigmoidoscopy/CT colonography 11/15/2011 DTaP/Tdap/Td vaccine (1 - Tdap) 09/15/2013 09/14/2013 Hepatitis B vaccine (3 of 3 - 19+ 3-dose series) 08/23/2014 04/05/2014, 02/22/2014 Shingles vaccine (1 of 2) 2016 Breast cancer screen 11/04/2022 11/04/2021, 06/12/2020, 06/12/2020, Additional history exists Lipids 03/22/2023 03/22/2018, 03/11/2016 COVID-19 Vaccine ( - season) 2024 Flu vaccine (#1) 12/01/2024 02/26/2022, , 03/04/2020, Additional history exists Pneumococcal 50+ years Vaccine (3 of 3 - PCV20 or PCV21) 05/03/2025 05/03/2020, 01/31/2016, 01/15/2016 Colonoscopy 10/28/2033 10/29/2023, 10/02, 12/03/2014 Colorectal Cancer Screen 10/28/2033 Hepatitis A vaccine Aged Out 04/05/2014, 4 No longer eligible based on patient's age to complete this topic Diabetes screen Discontinued 03/22/2018 Pneumococcal 0-49 years Vaccine Discontinued 05/03/2020, 01/31/2016, 01/15/2016 Hib vaccine Aged Out No longer eligi ble based on patient's age to complete this topic Meningococcal (ACWY) vaccine Aged Out No longer eligible based on patient's age to complete this topic Meningococcal B vaccine Aged Out No l onger eligible based on patient's age to complete this topic Polio vaccine Aged Out No longer elig ible based on patient's age to complete this topic Procedures Procedure Name Priority Date/Time Associated Diagnosis Comments COLONOSCOPY PROCEDURE Routine 10/29/2023 8:16 AM EDT HEMOGLOBIN A1C Routine 03/22/2018 Encounter for screening for diabetes mellitus LIPID PANEL Routine 03/22/2018 Screening cholesterol level WARD DIGITAL SCREEN W OR WO CAD BILATERAL Routine 07/26/2017 Screening for breast cancer from Last 3 Months or Most Recently Relevant to Health Maintenance Results * Colonoscopy (10/29/2023 8:16 AM EDT) Narrative Mary Christina - 10/29/2023 8:16 AM EDT No dictation Nicole Grijalva DO ENDOSCOPY ORDERABLES Final Result * Hemoglobin A1C (03/22/2018) Hemoglobin A1C 5.3 % Estimated Avg Glucose 105 BLOOD SPECIMEN / Unknown 03/22/2018 Lolis Wheeler PA-C CHEMISTRY ORDERABLES Final R esult * Lipid Panel (03/22/2018) Cholesterol, Total 143 mg/dL HDL 44 35 - 70 mg/dL LDL Calculated 82 0 - 160 mg/dL Triglycerides 85 mg/dL Chol/HDL Ratio 3.0 VLDL 17 mg/dL BLOOD SPECIMEN / Unknown 03/22/2018 Lolis Wheeler PA-C CHEMISTRY ORDERABLES Final R esult * WARD DIGITAL SCREEN W OR WO CAD BILATERAL (07/26/2017) Anatomical Region Laterality Modality Breast Bilateral Mammography 07/26/2017 Narrative 07/26/2017 SEE SCANNED REPORT Phylicia M Abundio STORY TELLER - CLAIMS SERVICE REPRESENTATIVE IMG MAMMOGRAPHY ORDERAB LES Final Result from Last 3 Months or Most Recently Relevant to Health Maintenance Insurance [employer] Member Subscriber Plan / Payer ( fective 2014-Present) Name:Ольга Garcia Relation to Subscriber:Self Name:Ольга Garcia Payer ID:Not on file Group ID:[id number] Type:Not on file Address: [place] [id number] Care Teams Tax Agent Relationship Specialty Start Date End Date Oscar Escudero MD [address] [address] PCP - General 10/29/23
--- OUTSIDE RECORDS SUMMARY | 2024-11-08 20:32 | XMS_ITS | Encounter Summary ---
Author Organization [facility] Address [address] [place] [address] Care Team Providers Care Counter Attendant Name Role Phone Phylicia Del Castillo DUTCH Primary Care Provider [phone] Source Comments In the event this information is protected by the Federal Confidentiality of Alcohol and Drug AbusePatient Records regulations: The Federal rules restrict any use of the information to criminally investigate or prosecute any alcohol or drug abuse patient.[facility] Encounter Details Date Type Department Care Team (Late st Contact Info) Description 03/20/2018 Patient Msg Pain Management [address] [place], [place] [phone] Amanda Davenport PA-C [address] [place] [address] RE: Appointment Cancellation Request Social History Tobacco Use Types Packs/Day [...] on filedocumented in this encounter Care Teams Counter Attendant Relationship Specialty Start Date End Date Phylicia Del Castillo CNP [address] [place] [address] PCP - General Family Medicine 05/19/17 documented as of this encounter
--- OUTSIDE RECORDS SUMMARY | 2024-11-08 20:32 | XMS_ITS | Encounter Summary ---
Author Organization [facility] Address [address] [place] [address] Care Team Providers Care Pump Servicer Name Role Phone Phylicia Del Castillo DUTCH Primary Care Provider [phone] Source Comments In the event this information is protected by the Federal Confidentiality of Alcohol and Drug AbusePatient Records regulations: The Federal rules restrict any use of the information to criminally investigate or prosecute any alcohol or drug abuse patient.[facility] Encounter Details Date Type Department Care Team (Late st Contact Info) Description 02/28/2018 Patient Msg Rheumatology [address] [phone] Provider, [facility] results Social History Tobacco Use [...] on filedocumented in this encounter Care Teams Pump Servicer Relationship Specialty Start Date End Date Phylicia Del Castillo CNP [address] [place] [address] PCP - General Family Medicine 05/19/17 documented as of this encounter
--- OUTSIDE RECORDS SUMMARY | 2024-11-08 20:32 | XMS_ITS | Encounter Summary ---
Author Organization [facility] Address [address] [place] [address] Care Team Providers Care Deputy Sheriff Generalist Name Role Phone Oscar Escudero MD Primary Care Provider [phone] Bhargav Liriano NP Unavailable [phone] Judie Reynolds LPN Unavailable [phone] Encounter Details Date Type Department Care Team (Late Contact Info) Description 11/08/2024 Results Follow-Up [facility] [address] [facility] [address] [place] [phone] Danielle Kasper NECKTIE TURNER [address] [facility] [address] [place] [address] Social History Tobacco Use Types Packs/Day Years [...] as of this encounter Miscellaneous Notes * Result Encounter Note - Danielle Kasper NP - 11/08/2024 12:12 PM EDT Please let pt know labs overall not bad. Her B12 is low normal range so I would make sure she is taking B12 supplement. Kidneys, liver labs all normal. Lipids improved from prior check but Triglycerides remain high - watch diet, saturated fats/fried foods limit. documented in this encounter Plan of Treatment Upcoming Encounters Date Type Department Care Team (Late st Contact Info) Description 05/10/2025 9:45 AM EST Office Visit [facility] [address] [place] [address] 11/12/2025 8:30 AM EDT Office Visit [facility] [address] [place] [phone] Tony Montoya, DO [address] [place], [place] [phone] documented as of this encounter Goals Goal Patient Goal Type Associated Problems Recent Progress Patient-Stated? Author Smoking cessation General No Zina Lawler LPN documented as of this encounter Visit Diagnoses Not on filedocumented in this encounter Care Teams Deputy Sheriff Generalist Relationship Specialty Start Date End Date Oscar Escudero MD [address] [place] [address] PCP - General Internal Medicine 10/06/22 Bhargav Liriano NP [address] [place] [address] PCP - [facility] 08/01/22 Judie Reynolds LPN [address] [place] [address] Licensed Practical Nurse Family Medicine 01/13/23 documented as of this encounter
--- OUTSIDE RECORDS SUMMARY | 2024-11-08 20:32 | XMS_ITS | Encounter Summary ---
Author Organization [facility] Address [address] [place] [address] Care Team Providers Care Keno Manager Name Role Phone Oscar Escudero MD Primary Care Provider [phone] Reason for Visit * Reason Comments Medication Refill Encounter Details Date Type Department Care Team (Late st Contact Info) Description 10/25/[address] [phone] Phylicia Del Castillo, SLICING MACHINE OPERATOR - BAND LINING BANDER Medication Refill Social History Tobacco Use Types [...] unspecified documented in this encounter Care Teams Keno Manager Relationship Specialty Start Date End Date Oscar Escudero MD [address] [place] [address] PCP - General 10/29/23 documented as of this encounter
--- OUTSIDE RECORDS SUMMARY | 2024-11-08 20:32 | XMS_ITS | Encounter Summary ---
Author Organization [facility] Address [id number] [address] [place] [address] Care Team Providers Care Clinical Neuropsychologist Name Role Phone Oscar Escudero MD Primary Care Provider [phone] Encounter Details Date Type Department Care Team (Late st Contact Info) Description 10/27[facility]2023 [facility] [address] [address] Анна Nielsen Social History Tobacco Use Types Packs/Day Years [...] often do you attend chur ch or pentecostalism services? Never 01/12/2020 Do you belong to any clubs o r organizations such as adventist groups, unions, fraternal or athletic groups, or [...] Answer Date Recorded Total Score 2 01/12/2020 [facility] [place] of Occupat ional Health - Occupational Stress [...] Recorded Do you need help finding a [facility] and/or a training program? No 01/12/2020 Hunger Screening Answer Date Recorded Within the past 12 months we worried whether our food would run out before we got money to buy more. Never True 09/28/2023 Within the past 12 months th e food we bought just didn't last and we didn't have money to get more. Never True 09/28/2023 Purpose - Life Answer Date Recorded Purpose and direction in life Unknown Comments No Sex and Gender Information Value Date Recorded Sex Assigned at Female 03/09/2024 2:18 PM EST Legal Sex Female 2:56 PM EDT Gender Identity Female 03/09/2024 2:18 PM EST Sexual Orientation Straight 03/09/2024 2: 18 PM EST documented as of this encounter Miscellaneous Notes * Telephone Encounter - Анна Nielsen - 10/27/2023 2:[address] order for PFT Cx 2 views was done on 07.05.23 Thank You for all you do * Telephone Encounter - Krystyna Hess RN - 10/27/2023 2:09 PM EDT Orders placed documented in this encounter Plan of Treatment Not on file documented as of this encounter Visit Diagnoses Not on filedocumented in this encounter Additional Health Concerns Infection Onset Date Last Indicated Resolved Time COVID-19 Rule-Out 01/29/2024 01/29/2024 01/29/2024 6:50 PM EDT COVID-19 Rule-Out 03/28/2024 03/28/2024 03/28/2024 5:11 PM EST COVID-19 Rule-Out 04/24/2024 04/24/2024 04/24/2024 8:14 PM EST COVID-19 Rule-Out 05/02/2024 05/02/2024 05/02/2024 10:09 PM EST Assessment Noted Time PHQ-9 Depression Total Score: 2 01/12/20 20 6:00 AM EDT documented as of this encounter Care Teams Clinical Neuropsychologist Relationship Specialty Start Date End Date Oscar Escudero MD [address] [place] [address], [address] [place] [id number] PCP - General Internal Medicine 08/21/24 documented as of this encounter
--- OUTSIDE RECORDS SUMMARY | 2024-11-08 20:32 | XMS_ITS | Clinical Summary ---
Author Organization [facility] Address [address] [place] [address] Care Team Providers Care Mold Making Supervisor Name Role Phone Phylicia Del Castillo CONSIGNEE Primary Care Provider [phone] Allergies Active Allergy Reactions Criticality Noted Date Comments Adhesive Tape (Rosins) Rash 11/09/2017 Loratadine Intolerance 01/09/2014 Codeine Other: See Comments 07/11/2013 Dpt-Haemophilus Ps(Tet.Conj.) Other: See Comments 07/11/2013 Hydromorphone Other: See Comments 10/03/2017 Morphine GI Upset 11/09/2017 Medications Cholecalciferol , Vitamin D3, (VITAMIN D) 1,000 unit cap Take 1,000 Units by mouth once daily. Active ALPRAZolam (XANAX) 0.5 mg tablet Take 0.5 mg by mouth as needed. 8 Active HI-LINDA 500 mg(1,250mg) -200 unit per tablet Take by mouth once daily. 8 Active cetirizine-pseu doephedrine (ZYRTEC-D) 5-120 mg per tablet Take by mouth as needed. 8 Active LINZESS 72 mcg cap Take 72 mg by mouth as needed. 8 Active omeprazole (PRILOSEC) 20 mg capsule Take 20 mg by mouth once daily. 8 Active rOPINIRole (REQUIP) 0.5 mg tablet Take 0.5 mg by mouth once daily. 8 Active SENNA PLUS 8.6-50 mg per tablet Take by mouth once daily. 8 Active fluticasone (FLONASE) 50 mcg/actuation nasal spray Use 1 [place] in the nose once daily. 6 Active MELATONIN ORAL Take by mouth. Active IBUPROFEN ORAL Take by mouth. Active meloxicam (MOBIC) 7.5 mg tablet Take 1 tablet by mouth once daily. 30 tablet 1 8 Active MAVYRET 100-40 mg tab take 3 tablets once a day with food for 8 weeks 90 tablet 1 8 Active albuterol (PROVENTIL) 2.5 mg /3 mL (0.083 %) nebulizer solution Inhale 2.5 mg as instructed as needed. Active traZODone (DESYREL) 100 mg tablet Take 100 mg by mouth once daily. 0 9 Active gabapentin (NEURONTIN) 100 mg capsuleIndicati ons:Fibromyalgi a,Trigger little finger of right hand,Chronic bilateral low back pain without sciatica take 1 capsule by mouth three times a day 90 capsule 2 9 Active Active Problems Problem Noted Date Diagnosed Date Cramp of extremity 02/23/2018 Cervical radiculopathy 01/18/2018 Post-operative state 12/07/2017 Impingement syndrome of right shoulder 8 Hip pain, bilateral 11/18/2017 Cervicalgia 11/18/2017 Chronic bilateral low back pain without sciatica 11/18/2017 Hair loss 11/18/2017 Thyroid nodule 11/18/2017 Pain in both feet 11/18/2017 Tendonitis 11/08/2017 Plantar fasciitis 11/08/2017 Trigger little finger of right hand 10/18/2017 Overview (10/18/2017): Added automatically from request for surgery [id number] Fibromyalgia 10/06/2017 Secondary osteoarthritis of multiple sites 08/23 Chronic pain of both shoulders 08/23/2017 Vitamin D deficiency 08/23/2017 Lateral epicondylitis of both elbows 07/30/2017 Primary osteoarthritis of both first carpometaca rpal joints 07/15/2017 Trigger index finger of right hand 06/01/2017 Trigger finger of right thumb 06/01/2017 Trigger thumb of left hand 06/01/2017 Anxiety 07/11/2013 S/P tubal ligation 07/11/2013 Chronic hepatitis C virus infection 07/11/2013 Blurry vision 07/11/2013 Family History Medical History Relation Comments Cancer Father Heart Father Heart Mother Relation Status Comments Father Mother Social History Tobacco Use Types Packs/Day Years Used Date Smoking Tobacco: Every Day Cigarettes 1 43 Started: [birth year]/09/1981 Smokeless Tobacco: Never Alcohol Use Standard Drinks/Week Comments No 0 (1 standard drink = 0.6 oz pur e alcohol) PHQ-2 Answer Date Recorded PHQ-2 score 4 12/17/2019 Area Deprivation Index Answer Date Chip rded National Score (1-100), lower number is lower ri sk Not on file 04/07/2020 State Score (1-10), lower number is lower risk N ot on file 04/07/2020 Data from: https://www.neighborhoodatlas.medicine.[facility].edu/. Last address used for calculation Not on file 04/07/2020 Comments No Sex and Gender Information Value Date Recorded Sex Assigned at Not on file Legal Sex Female 11:40 AM EST Gender Identity Not on file Sexual Orientation Not on file Last Filed Vital Signs Vital Sign Reading Time Taken Comments Blood Pressure 100/58 06/27/2018 11:23 AM EST Pulse 83 02/23/2018 11:10 AM EDT Temperature 36.2 C (97.2 F) 11/23/2017 10:33 AM EDT Respiratory Rate 16 11/23/2017 10:55 AM EDT Oxygen Saturation 98% 02/23/2018 11:10 AM EDT Inhaled Oxygen Concentration - - Weight 77.1 kg (170 lb) 06/27/2018 11:23 AM EST self report Height 160 cm (5' 3 ) 06/27/2018 11:23 AM EST Body Mass Index 30.11 06/27/2018 11:23 AM EST Plan of Treatment Health Maintenance Due Date Last Done Comments Anxiety Screening 1984 Depression Screening 1984 HIV Screening 1984 DTaP,Tdap,Td Vaccine (1 - Tdap) 1985 Hepatitis B Vaccine (1 of 3 - 19+ 3-dose series) 1985 Cervical Cancer Screening 11/15/1987 CT Colonography 11/15/2011 Cologuard (FIT-DNA) 11/15/2011 Colonoscopy 11/15/2011 Colorectal Cancer Screening 11/15/2011 Fecal Occult Blood 11/15/2011 Sigmoidoscopy 11/15/2011 Shingrix Vaccine (1 of 2) 2016 Pneumococcal Vaccine: 50+ (2 of 2 - PPSV23) 01/30/2017 01/31/2016 Mammogram Screening 12/22/2019 12/21/2018 Diabetes Screening 03/18/2022 03/18/2019, 1 , 01/20/2019, Additional history exists Lipid Screening 12/22/2023 12/21/2018, 03/22/2018 Covid-19 Vaccine (1 - 2023-2 5 season) 2024 Influenza Vaccine (#1) 2025 9, 02/16/2018, 01/06/2017 Hepatitis C Screening Completed 03/18/2019 , 03/18/2019, 02/04/2019, Additional history exists Procedures Procedure Name Priority Date/Time Associated Diagnosis Comments HEPATITIS C VIRUS (HCV) RNA, QUANTITATIVE PCR, PLASMA/SERUM Routine 03/18/2019 11:36 AM EST Chronic hepatitis C without hepatic coma (HCC) COMPREHENSIVE METABOLIC PANEL Routine 03/18/2019 11:36 AM EST Chronic hepatitis C without hepatic coma (HCC) from Last 3 Months or Most Recently Relevant to Health Maintenance Results * HCV QUANT RNA BY PCR (03/18/2019 11:36 AM EST) HCV RNA by PCR HCV RNA not detected by PCR. IU/mL 03/21/2019 3:[address] [facility] [employer] Comment: Reference Range: Negative for HCV RNA The Linear Range of this assay is 15 IU/mL to 100,000,000 IU/mL. Blood specimen (specimen) BLOOD SPECIMEN / Unknown 03/18/2019 11:36 AM EST 03/18/2019 11:38 AM EST us Kandace Penn MD, PhD LABORATORY Final Result [facility] [address] [place] [address] [facility] [address] [place] [address] * COMP METABOLIC PANEL (03/18/2019 11:36 AM EST) [facility] Protein, Total 6.7 6.3 - 8.0 g/dL 03/18/2019 9:[address] [facility] Albumin 4.5 3.9 - 4.9 g/dL 03/18/2019 9:[address] [facility] Calcium 9.5 8.5 - 10.2 mg/dL 03/18/2019 9:43 PM [facility] Bilirubin, Total 0.2 0.2 - 1.3 mg/dL 03/18/2019 9:43 PM [facility] Alkaline Phosphatase 72 34 - 123 U/L 03/18/2019 9:43 PM [facility] AST 20 13 - 35 U/L 03/18/2019 9:43 PM [facility] Glucose 79 74 - 99 mg/dL 03/18/2019 9:43 PM [facility] Comment: The [place] Diabetes Association (ADA) provides guidance for cutoff values for fasting glucose and random glucose. The ADA defines fasting as no caloric intake for at least 8 hours. Fasting plasma glucose results between 100 to 125 mg/dL indicate increased risk for diabetes (prediabetes). Fasting plasma glucose results greater than or equal to 126 mg/dL meet the criteria for diagnosis of diabetes. In the absence of unequivocal hyperglycemia, results should be confirmed by repeat testing. In a patient with classic symptoms of hyperglycemia or hyperglycemic crisis, random plasma glucose results greater than or equal to 200 mg/dL meet the criteria for diagnosis of diabetes. Reference: Standards of Medical Care in Diabetes 2016, [place] Diabetes Association. Diabetes Care. 2016.39(Suppl 1). BUN 11 7 - 21 mg/dL 03/18/2019 9:43 PM [facility] Creatinine 0.61 0.58 - 0.96 mg/dL 03/18/2019 9:43 PM [facility] Sodium 139 136 - 144 mmol/L 03/18/2019 9:43 PM [facility] Potassium 4.3 3.7 - 5.1 mmol/L 03/18/2019 9:43 PM [facility] Chloride 103 97 - 105 mmol/L 03/18/2019 9:43 PM [facility] CO2 23 22 - 30 mmol/L 03/18/2019 9:43 PM [facility] Anion Gap 13 9 - 18 mmol/L 03/18/2019 9:[address] [facility] ALT 11 7 - 38 U/L 03/18/2019 9:[address] [facility] eGFR- >60 03/18/2019 9:[address] [facility] eGFR-All Other Races >60 . 03/18/2019 9:[address] [facility] Comment: eGFR (Estimated GFR) Units of measure: mL/min/1.73 meters squared eGFR is derived from the reexpressed MDRD Study equation using the following parameters: serum creatinine, age, gender and race. The creatinine assay has been calibrated to be traceable to IDMS. An eGFR <60 mL/min/1.73m2 for >3 months is consistent with chronic kidney disease. Refer to KDOQI guidelines for clinical interpretation. In patients with unstable renal function, e.g. those with acute kidney injury, the eGFR may not accurately reflect actual GFR. Blood specimen (specimen) BLOOD SPECIMEN / Unknown 03/18/2019 11:36 AM EST 03/18/2019 11:38 AM EST us Kandace Penn MD, PhD LABORATORY Final Result [facility] [address] [place] [address] [facility] [address] [place] [address] from Last 3 Months or Most Recently Relevant to Health Maintenance Insurance [employer] Care Teams Mold Making Supervisor Relationship Specialty Start Date End Date Phylicia Del Castillo CNP [address] [place] [address] PCP - General Family Medicine 05/19/17
--- OUTSIDE RECORDS SUMMARY | 2024-11-08 20:32 | XMS_ITS | Encounter Summary ---
Author Organization [facility] tem Address [id number] [address] [place] [address] Care Team Providers Care Regional Psychiatric Director Name Role Phone Oscar Escudero MD Primary Care Provider [phone] Encounter Details Date Type Department Care Team (Late st Contact Info) Description 09/01/2022 Telephone [facility] Card[facility] [address] [facility] [address] [place] [address] Spencer Garcia MD [address] [place] [address] Social History Tobacco Use Types Packs/Day Years [...] often do you attend chur ch or mosque services? Never 01/12/2020 Do you belong to [...] Answer Date Recorded Total Score 2 01/12/2020 [facility] [place] of Occupat ional Health - Occupational Stress [...] Recorded Do you need help finding a [place] [employer] career center and/or a training program? No [...] encounter Miscellaneous Notes * Telephone Encounter - Karina Aburto - 09/01/2022 8:58 AM EDT This is notification that we have received a referral for the patient. Please reach out to schedulenew patient appointment in your office. Please check the referral tab in appt desk for details and to make sure to assign referral or schedule off of it. Thank you. documented in this encounter Plan of Treatment Not on file documented as of this encounter Visit Diagnoses Not on filedocumented in this encounter Additional Health Concerns Infection Onset Date Last Indicated Resolved Time COVID-19 Rule-Out 04/05/2023 04/05/2023 04/05/2023 11:25 AM EST COVID-19 Rule-Out 01/29/2024 01/29/2024 01/29/2024 6:50 PM EDT COVID-19 Rule-Out 03/28/2024 03/28/2024 03/28/2024 5:11 PM EST COVID-19 Rule-Out 04/24/2024 04/24/2024 04/24/2024 8:14 PM EST COVID-19 Rule-Out 05/02/2024 05/02/2024 05/02/2024 10:09 PM EST Assessment Noted Time PHQ-9 Depression Total Score: 2 01/12/20 20 6:00 AM EDT documented as of this encounter Care Teams Regional Psychiatric Director Relationship Specialty Start Date End Date Oscar Escudero MD [address] [place] [address], [address] [place] [address] PCP - General Internal Medicine 08/21/24 documented as of this encounter
--- OUTSIDE RECORDS SUMMARY | 2024-11-08 20:32 | XMS_ITS | Encounter Summary ---
Author Organization [facility] tem Address [id number] [address] [place] [address] Care Team Providers Care Attendant Campground Name Role Phone Oscar Escudero MD Primary Care Provider [phone] Encounter Details Date Type Department Care Team (Late st Contact Info) Description 11/16/2023 Orders Only [facility] Pulmonary/Sleep Medicine [address] [place] [address] Krystyna Hess, RN SOB (shortness of breath) (Primary Dx) Social History Tobacco Use Types Packs/Day Years [...] often do you attend chur ch or mandaen services? Never 01/12/2020 Do you belong to any clubs o r organizations such as spiritism groups, unions, fraternal or athletic groups, or [...] Answer Date Recorded Total Score 2 01/12/2020 [facility] [place] of Occupat ional Health - Occupational Stress [...] Recorded Do you need help finding a [facility] career center and/or a training program? [...] PM EST documented as of this encounter Plan of Treatment Not on file documented as of this encounter Results * SPIROMETRY PRE/POST BRONCHODILATOR AND DLCO (12/02/2023 10:16 AM EDT) Narrative MANUALLY TRANSCRIBED RESULTS - 12/19/2023 3:54 PM EDT Normal FVC, 112% predicted. Normal FEV1, 114% predicted. Normal ratio. No significant bronchodilator response. Normal DLCO. Impression: Normal spirometry and DLCO, clinical correlation is recommended. us Sandi Shaffer MD PFT ORDERABLES Final Resu lt MANUALLY TRANSCRIBED RESULTS documented in this encounter Visit Diagnoses Diagnosis SOB (shortness of breath)- Primary Shortness of breath SOB (shortness of breath) Shortness of breath documented in this encounter Additional Health Concerns [...] documented as of this encounter Care Teams Attendant Campground Relationship Specialty Start Date End Date Oscar Escudero MD [address] [place] [address], [address] [place] [id number] PCP - General Internal Medicine 08/21/24 documented as of this encounter
--- OUTSIDE RECORDS SUMMARY | 2024-11-08 20:32 | XMS_ITS | Encounter Summary ---
Author Organization [facility] Address [address] [place] [address] Care Team Providers Care Silk Worker Name Role Phone Phylicia Del Castillo DUTCH Primary Care Provider [phone] Source Comments In the event this information is protected by the Federal Confidentiality of Alcohol and Drug AbusePatient Records regulations: The Federal rules restrict any use of the information to criminally investigate or prosecute any alcohol or drug abuse patient.[facility] Encounter Details Date Type Department Care Team (Late st Contact Info) Description 06/13/2018 Patient Msg Neurology [address] [place] [address] [place] [address] [place] [address] RE: Appointment Request Social History Tobacco Use [...] on filedocumented in this encounter Care Teams Silk Worker Relationship Specialty Start Date End Date Phylicia Del Castillo CNP [address] [place] [address] PCP - General Family Medicine 05/19/17 documented as of this encounter
--- OUTSIDE RECORDS SUMMARY | 2024-11-08 20:32 | XMS_ITS | Encounter Summary ---
Author Organization [facility] Address [address] [place], [place] [id number] Care Team Providers Care Civil Cad Tech Name Role Phone Phylicia Del Castillo DUTCH Primary Care Provider [phone] Source Comments In the event this information is protected by the Federal Confidentiality of Alcohol and Drug AbusePatient Records regulations: The Federal rules restrict any use of the information to criminally investigate or prosecute any alcohol or drug abuse patient.[facility] Encounter Details Date Type Department Care Team (Late st Contact Info) Description 04/27/2018 Patient Msg Gastroenterology [address] [place] [id number] Kandace Penn MD, PhD [address] [place], [place] [phone] medication Social History Tobacco Use Types Packs/Day Years [...] on filedocumented in this encounter Care Teams Civil Cad Tech Relationship Specialty Start Date End Date Phylicia Del Castillo CNP [address] [place], [place] [id number] PCP - General Family Medicine 05/19/17 documented as of this encounter
--- OUTSIDE RECORDS SUMMARY | 2024-11-08 20:32 | XMS_ITS | Encounter Summary ---
Author Organization [facility] Address [address] [place] [address] Care Team Providers Care Curator Zoological Museum Name Role Phone Mitra Ziegler (Hist) Primary Care Provider Phylicia Mantilla CNP Primary Care Provider [phone] Source Comments In the event this information is protected by the Federal Confidentiality of Alcohol and Drug AbusePatient Records regulations: The Federal rules restrict any use of the information to criminally investigate or prosecute any alcohol or drug abuse patient.[facility] Encounter Details Date Type Department Care Team (Late st Contact Info) Description 05/09/2015 Patient Msg Medical Records [address] [place], [place] [phone] Provider, Ccf result Social History Tobacco Use Types Packs/Day Years [...] of Assessment Author No 07/11/2013 9:15 AM EDT Erika Mendes * Are you blind or do you [...] on filedocumented in this encounter Care Teams Curator Zoological Museum Relationship Specialty Start Date End Date Mitra Ziegler (Hist) [address] [place] [address] PCP - General 02/02/14 05/18/17 Phylicia Del Castillo CNP [address] [place] [address] PCP - General Family Medicine 05/19/17 documented as of this encounter
--- OUTSIDE RECORDS SUMMARY | 2024-11-08 20:33 | XMS_ITS | Encounter Summary ---
Author Organization [facility] Address [address] [place] [address] Phone Care Team Providers Care Salad Counter Attendant Name Role Phone Oscar Escudero MD Primary Care Provider [phone] Encounter Details Date Type Department Care Team (Late st Contact Info) Description 05/09/2024 Scanned Document [facility] [address] [place] [phone] Scanning, Generic Provider Social History Tobacco Use Types Packs/Day Years Used Date Smoking Tobacco: Never Assessed PHQ-2 Answer Date Recorded Patient Health Questionnaire-2 Score 3 11/26/2022 Comments Unknown Sex and Gender Information Value Date Recorded Sex Assigned at Not on file Legal Sex Female 11:18 AM EDT Gender Identity Not on file Sexual Orientation Not on file documented as of this encounter Plan of Treatment Upcoming Encounters Date Type Department Care Team (Late st Contact Info) Description 01/03/2025 3:10 PM EDT Office Visit [facility] [address] [facility] [address] [place] [address] Leilani Quezada MD [address] [facility] [address] [place], [place] [phone] documented as of this encounter Visit Diagnoses Not on filedocumented in this encounter Additional Health Concerns Assessment Noted Time PHQ-9 Depression Total Score: 13 023 10:54 AM EDT documented as of this encounter Care Teams Salad Counter Attendant Relationship Specialty Start Date End Date Oscar Escudero MD [address] [place] [address] PCP - General 10/07/22 documented as of this encounter
--- OUTSIDE RECORDS SUMMARY | 2024-11-08 20:33 | XMS_ITS | Encounter Summary ---
Author Organization [facility] Address [address] [place] [address] Care Team Providers Care Engineering Designer Name Role Phone Oscar Escudero MD Primary Care Provider [phone] Reason for Visit * Reason Comments Medication Refill Encounter Details Date Type Department Care Team (Late st Contact Info) Description 09/20/[address] [phone] Phylicia Del Castillo, SUPERVISOR CIGARETTE MAKING DEPARTMENT - PHYSICAL THERAPY ASSISTANT INSTRUCTOR Medication Refill Social History Tobacco Use Types Packs/Day Years Used Date Smoking Tobacco: Every Day Cigarettes 0.5 25 Smokeless Tobacco: Never Alcohol Use Standard Drinks/Week Comments No 0 (1 standard drink = 0.6 oz pur e alcohol) quit 3 yrs ago Comments No Sex and Gender Information Value Date Recorded Sex Assigned at Not on file Legal Sex Female 6:18 PM EST Gender Identity Not on file Sexual Orientation Not on file documented as of this encounter Plan of Treatment Not on file documented as of this encounter Visit Diagnoses Diagnosis Anxiety Anxiety state, unspecified documented in this encounter Care Teams Engineering Designer Relationship Specialty Start Date End Date Oscar Escudero MD [address] [facility] [address] [place] [address] PCP - General 10/29/23 documented as of this encounter
--- OUTSIDE RECORDS SUMMARY | 2024-11-08 20:33 | XMS_ITS | Encounter Summary ---
Author Organization [facility] Address [address] [place] [address] Care Team Providers Care Recruiting Internship Name Role Phone Oscar Escudero MD Primary Care Provider [phone] Reason for Visit * Reason Onset Date Comments Medication Refill 03/03/2018 Encounter Details Date Type Department Care Team (Late st Contact Info) Description 03/03/[address] [phone] Phylicia Del Castillo, CLINICAL SERVICES MANAGER - INSTRUCTOR TRAINER CANINE SERVICE Medication Refill Social History Tobacco Use Types [...] unspecified documented in this encounter Care Teams Recruiting Internship Relationship Specialty Start Date End Date Oscar Escudero MD [address] [facility] [address] [place] [address] PCP - General 10/29/23 documented as of this encounter
--- OUTSIDE RECORDS SUMMARY | 2024-11-08 20:33 | XMS_ITS | Encounter Summary ---
Author Organization [facility] Address [address] [place] [address] Phone Care Team Providers Care Sports Official Name Role Phone Oscar Escudero MD Primary Care Provider [phone] Encounter Details Date Type Department Care Team (Late st Contact Info) Description 05/10/2024 Scanned Document [facility] [address] [place] [phone] Scanning, Generic Provider Social History Tobacco Use [...] Description 01/03/2025 3:10 PM EDT Office Visit [facility] [address] [facility] [address] [place] [address] Leilani Quezada MD [facility] [facility] [address] [place], [place] [phone] documented as of this encounter Visit Diagnoses Not on filedocumented in this encounter Additional Health Concerns Assessment Noted Time PHQ-9 Depression Total Score: 13 023 10:54 AM EDT documented as of this encounter Care Teams Sports Official Relationship Specialty Start Date End Date Oscar Escudero MD [address] [place] [address] PCP - General 10/07/22 documented as of this encounter
--- OUTSIDE RECORDS SUMMARY | 2024-11-08 20:33 | XMS_ITS | Encounter Summary ---
Author Organization [facility] Address [address] [place] [address] Care Team Providers Care Project Safety Manager Name Role Phone Oscar Escudero MD Primary Care Provider [phone] Reason for Visit * Reason Comments Medication Refill Encounter Details Date Type Department Care Team (Late st Contact Info) Description 02/22/[address] [phone] Phylicia Del Castillo, OUTSIDE PLANT TECHNICIAN - REGIONAL FACILITIES MANAGER Medication Refill Social History Tobacco Use [...] unspecified documented in this encounter Care Teams Project Safety Manager Relationship Specialty Start Date End Date Oscar Escudero MD [address] [facility] [address] [place] [address] PCP - General 10/29/23 documented as of this encounter
--- OUTSIDE RECORDS SUMMARY | 2024-11-08 20:33 | XMS_ITS | Clinical Summary ---
Author Organization [facility] Address [address] [place] [address] Phone Care Team Providers Care Group Leader Name Role Phone Oscar Escudero MD Primary Care Provider Allergies Active Allergy Reactions Criticality Noted Date Comments Adhesive Other 09/10/2021 Other reaction(s): Unknown Diphtheria,Pertussis,Tetan us Swelling 10/03/2017 Medications ALPRAZolam (Xanax) 0.25 mg tablet Take 1 tablet (0.25 mg) by mouth as needed at bedtime. Active albuterol 2.5 mg /3 mL (0.083 %) nebulizer solution 3 mL (2.5 mg) every 4 hours if needed. 4 Active albuterol 90 mcg/actuation inhaler Inhale 1 puff every 4 hours if needed. 4 Active aspirin 325 mg EC tablet Take 1 tablet (325 mg) by mouth once daily. 3 Active calcium carbonate 600 mg calcium (1,500 mg) tablet Take 600 mg by mouth once daily. Active cholecalciferol (Vitamin D-3) 125 mcg (5000 UT) capsule Take 1 capsule (125 mcg) by mouth once daily. Active cyanocobalamin, vitamin B-12, 1,000 mcg capsule Take 1 tablet by mouth once daily. Active dicyclomine (Bentyl) 20 mg tablet Take 1 tablet (20 mg) by mouth twice a day. 4 Active DULoxetine (Cymbalta) [address] capsule Take 1 capsule (30 mg) by mouth once daily. 3 Active fluticasone (Flonase) 50 mcg/actuation nasal spray Administer 2 sprays into each nostril once daily as needed. Active loratadine (Claritin) 10 mg tablet Take 1 tablet (10 mg) by mouth if needed. Active metoprolol tartrate (Lopressor) 50 mg tablet Take 1 tablet by mouth 2 times a day. 4 Active nicotine (Nicoderm CQ) 14 mg/[address] 1 patch on the skin once every 24 hours. 3 Active nicotine (Nicoderm CQ) 21 mg/[address] 1 patch on the skin once every 24 hours. 3 Active omeprazole (PriLOSEC) [address] capsule 1 capsule (20 mg) early in the morning.. 4 Active potassium chloride CR 10 mEq ER tablet Take 1 tablet (10 mEq) by mouth once daily. 3 Active pregabalin (Lyrica) 25 mg capsule Take 1 capsule (25 mg) by mouth if needed. 4 Active rOPINIRole (Requip) 0.5 mg tablet Take 1 tablet (0.5 mg) by mouth once daily at bedtime. 4 Active rosuvastatin (Crestor) 10 mg tablet Take 1 tablet (10 mg) by mouth once daily. 5 11/19/19 25 Active Active Problems Problem Noted Date Diagnosed Date BMI 33.0-33.9,adult 05/29/2024 Encounter to establish care 05/29/2024 Current every day smoker 05/29/2024 Paroxysmal atrial fibrillation (Multi) Shortness of breath 05/29/2024 Palpitations 05/29/2024 Lightheadedness 05/29/2024 Mixed hyperlipidemia 05/29/2024 Anxiety 05/29/2024 Encounters Date Type Department Care Team Description 10/23/[address] [phone] Dianna Macdonald LPN Rash; Hives; monitor 09/26/2024 9:00 AM EDT Ancillary Procedure [address] [phone] Paroxysmal atrial fibrillation (Multi); Palpitations 09/26/2024 Travel 09/13/[address] [phone] Generic Provider, No Assigned Pcp, from Last 3 Months Immunizations Immunization Administration Dates Next Due Flu vaccine, trivalent, pres ervative free, no egg protein, age 6 months or greater (Flucelvax) 04/13/2024 Hep A, Unspecified 04/05/2014,02/22/2014 Hepatitis B vaccine, adult *Check Product/Dose* 04/05/2014,02/22/2014 Pneumococcal conjugate vaccine, 13-valent (PREVN AR 13) 01/31/2016 Pneumococcal polysaccharide vaccine, 23-valent, age 2 years and older (PNEUMOVAX 23) 05/03/2020 Td vaccine, age 7 years and older (TENIVAC) 08/31 Family History Medical History Relation Name Comments Heart disease Brother Heart attack Father Heart disease Mother Stroke Mother Heart disease Sister Relation Name Status Comments Brother Father Mother Sister Social History Tobacco Use Types Packs/Day Years Used Date Smoking Tobacco: Every Day Cigarettes Smokeless Tobacco: Never Tobacco Cessation:Counseling Given: Yes Alcohol Use Standard Drinks/Week Comments Never 0 (1 standard drink = 0.6 oz pur e alcohol) PHQ-2 Answer Date Recorded Patient Health Questionnaire-2 Score 3 11/26/2022 Comments Unknown Sex and Gender Information Value Date Recorded Sex Assigned at Not on file Legal Sex Female 11:18 AM EDT Gender Identity Not on file Sexual Orientation Not on file Last Filed Vital Signs Vital Sign Reading Time Taken Comments Blood Pressure 112/74 05/29/2024 9:03 AM EST Pulse 65 05/29/2024 9:01 AM EST Temperature - - Respiratory Rate - - Oxygen Saturation - - Inhaled Oxygen Concentration - - Weight 85.7 kg (189 lb) 05/29/2024 9:01 AM EST Height 160 cm (5' 3 ) 05/29/2024 9:01 AM EST Body Mass Index 33.48 05/29/2024 9:01 AM EST Plan of Treatment Upcoming Encounters Date Type Department Care Team (Late st Contact Info) Description 01/03/2025 3:10 PM EDT Office Visit [address] [phone] Leilani Quezada MD [address] [facility] [address] [place] [address] Health Maintenance Due Date Last Done Comments CT Colonography 1966 FIT-DNA (Cologuard) 1966 HIV Screening 1966 Sigmoidoscopy 1966 MMR Vaccines (1 of 1 - Standard series) 11/15/1967 Diabetes Screening 1984 Cervical Cancer Screening 11/15/1987 HPV/Cotest 11/15/1987 Pap Smear 11/15/1987 DTaP/Tdap/Td Vaccines (1 - Tdap) 09/15/2013 09/14/2013 Hepatitis B Vaccines (3 of 3 - 19+ 3-dose series) 08/23/2014 04/05/2014, 02/22/2014 Hepatitis A Vaccines (2 of 2 - Risk 2-dose series) 10/04/2014 04/05/2014, 02/22/2014 Zoster Vaccines (1 of 2) 2016 FIT 06/30/2020 07/01/2019 COVID-19 Vaccine (1 - season) 2024 Influenza Vaccine (#1) 2025 04/13/2024 Yearly Adult Physical 04/14/2025 04/13/2024 Pneumococcal Vaccine (3 of 3 - PCV20 or PCV21) 05/03/2025 05/03/2020, 01/31/2016 Mammogram 05/19/2025 05/19/2024, 05/03, 11/04/2021, Additional history exists Lipid Panel 04/12/2029 04/12/2024 Colonoscopy 10/28/2033 10/29/2023, 12/03/2014 Colorectal Cancer Screening 10/28/2033 HIB Vaccines Aged Out No longer eligi ble based on patient's age to complete this topic HPV Vaccines (No Doses Required) Completed IPV Vaccines Aged Out No longer eligi ble based on patient's age to complete this topic Meningococcal Vaccine Aged Out No melissa claus eligible based on patient's age to complete this topic Rotavirus Vaccines Aged Out No longer eligible based on patient's age to complete this topic Procedures Procedure Name Priority Date/Time Associated Diagnosis Comments CARDIAC EVENT MONITOR CONTINUOUS UP TO 30 DAYS - [facility], PHYSICIAN READ Routine 09/26/2024 10:20 AM EDT Paroxysmal atrial fibrillation (Multi) Palpitations from Last 3 Months Results * CARDIAC EVENT MONITOR CONTINUOUS UP TO 30 DAYS - [facility], PHYSICIAN READ (09/26/2024 10:20 AM EDT) Narrative CPACS - 10/31/2024 8:39 AM EDT 30-day event monitor for paroxysmal atrial fibrillation, monitoring began 09/26/2024 and ended on 10/26/2024. 22 tracings were sent patient triggered, none of the rhythm strips were symptomatic. All rhythm strips revealed normal sinus rhythm with a heart rate that ranged between 74 bpm and 103 bpm. Some of the rhythm strips revealed isolated PACs. No atrial fibrillation was noted us Leilani Quezada MD [facility] PROCED [facility]RES Final Result [facility] from Last 3 Months Insurance Care Teams Group Leader Relationship Specialty Start Date End Date Oscar Escudero MD [address] [place] [id number] PCP - General 10/07/22
--- OUTSIDE RECORDS SUMMARY | 2024-11-08 20:33 | XMS_ITS | Encounter Summary ---
Author Organization [facility] Address [address] [place] [address] Care Team Providers Care Field Operations Supervisor Name Role Phone Oscar Escudero MD Primary Care Provider [phone] Reason for Visit * Reason Onset Date Comments Medication Refill 09/20/2017 Encounter Details Date Type Department Care Team (Late st Contact Info) Description 09/20/[address] [phone] Phylicia Del Castillo, EARLY HEAD START TEACHER - FLAP MAKER Medication Refill Social History Tobacco Use Types [...] unspecified documented in this encounter Care Teams Field Operations Supervisor Relationship Specialty Start Date End Date Oscar Escudero MD [address] [facility] [address] [place] [address] PCP - General 10/29/23 documented as of this encounter
--- OUTSIDE RECORDS SUMMARY | 2024-11-08 20:33 | XMS_ITS | Encounter Summary ---
Author Organization [facility] Address [address] [place] [address] Care Team Providers Care Process Inspector Name Role Phone Oscar Escudero MD Primary Care Provider [phone] Reason for Visit * Reason Comments Medication Refill Encounter Details Date Type Department Care Team (Late st Contact Info) Description 08/21/[address] [phone] Phylicia Del Castillo, ORGAN ASSEMBLER - ENGINEERING PROGRAM ANALYST Medication Refill Social History Tobacco Use Types [...] unspecified documented in this encounter Care Teams Process Inspector Relationship Specialty Start Date End Date Oscar Escudero MD [address] [facility] [address] [place] [address] PCP - General 10/29/23 documented as of this encounter
[2024-11-13 14:08] LABS: Age Gdln ACOG Testing Note (.); IGP, Aptima HPV, rfx 16/18,45 Note (.)
== END 2024-11-08 20:25 | disposition home or self-care (01) ==
LOC: LAB 20:24
PROVIDERS: Visit Provider Obstetrics & Gynecology
DX: Z01.419 Encounter for gynecological examination (general) (routine) without abnormal findings (principal); L73.9 Follicular disorder, unspecified
CPT/HCPCS: 87070; 87075; 87186; 87624; 88175